=== PATIENT | male | born 1945 | race Caucasian/White ===

== ENCOUNTER 2023-01-30 08:45 | Outpatient (CLI) | payer MEDICARE, OTHER, SELFPAY ==
--- NOTE | 2023-01-30 09:00 | CRLHL7_ITS ---
For Patients: As a result of the Century Cures Act, medical imaging exams and procedure reports are released immediately into your electronic medical record. You may view this report before your referring provider. If you have questions, please contact your health care provider. INDICATION: Prostate cancer staging TECHNIQUE: Intravenous injection of 26.9 mCi Tc MDP followed by delayed anterior and posterior planar images of skeletal system. COMPARISON: CT chest abdomen pelvis 01/30/2023 FINDINGS: Degenerative uptake is present at L2-3. Degenerative uptake also noted at the right L4-5 facet joint. No suspicious rib uptake or pelvic uptake. No abnormal long bone uptake. Skull uptake normal. Degenerative uptake about both shoulders and SC joints. Physiologic uptake in the kidneys. Degenerative uptake noted at the midfoot bilaterally. IMPRESSION: No evidence of metastatic disease. Dictated by Sd Fuentes MD @ 01/30/2023 1:30:33 PM (Electronically Signed)
[2023-01-30 09:26] LABS: Creatinine* 0.9 mg/dL (0.5-1.5); Estimated Glomerular Filt Rate 89 ml/min
--- NOTE | 2023-01-30 10:00 | CRLHL7_ITS ---
For Patients: As a result of the Century Cures Act, medical imaging exams and procedure reports are released immediately into your electronic medical record. You may view this report before your referring provider. If you have questions, please contact your health care provider. Indication: Prostate cancer Technique: Postcontrast CT abdomen and pelvis. 76 cc Isovue 370 intravenous contrast. Please note that all CT scans at this facility use dose modulation, iterative reconstruction, and/or weight-based dosing when appropriate to reduce radiation dose to as low as reasonably achievable. Comparison: CT 10/04/21, MRI 10/06/2022 Findings: Lung bases are clear. No pleural effusion. No basilar infiltrate. The liver is within normal limits. No intrahepatic mass. No stigmata of cirrhosis. Small area of fat deposition is present adjacent to the falciform ligament. Adrenal glands are within normal limits. 2 millimeter nonobstructing stone lower pole right kidney. Subcentimeter cyst upper pole left kidney. The spleen is normal. A small hiatal hernia is present measuring 1.9 cm. Small stones in the gallbladder. No biliary obstruction. Normal pancreas. Atherosclerotic changes. No enlarged retroperitoneal lymph nodes. Stable subcentimeter aortocaval lymph node. No enlarged inguinal lymph nodes. Subcentimeter pelvic sidewall lymph nodes are similar. Prostate calcifications. Increased stool in the colon. Sigmoid diverticulosis. No diverticulitis. Fluid or abscess. Degenerative disc disease L2-3. No vertebral body compression fracture. Degenerative changes also present at L4-5. Impression: Stable subcentimeter retroperitoneal and pelvic sidewall lymph nodes, considered normal. Constipation and sigmoid diverticulosis. Nonobstructing punctate stone lower pole right kidney. No evidence of osseous blastic metastasis. Please note that all CT scans at this facility use dose modulation, iterative reconstruction, and/or weight-based dosing when appropriate to reduce radiation dose to as low as reasonably achievable. Dictated by Sd Fuentes MD @ 01/30/2023 1:17:35 PM (Electronically Signed)
--- NOTE | 2023-02-26 09:21 | PC.NURSE ---
Diagnosis: prostate cancer
== END 2023-01-30 08:46 | disposition home or self-care (01) ==
LOC: NM 08:48
PROVIDERS: PCP Family Medicine; Visit Provider Urology
DX: C61 Malignant neoplasm of prostate (principal); K57.30 Diverticulosis of large intestine without perforation or abscess without bleeding; K59.00 Constipation, unspecified; N20.0 Calculus of kidney
CPT/HCPCS: 36415; 74177; 78306; 82565; A9503; Q9967

== ENCOUNTER 2023-05-24 08:30 | Outpatient (RCR) | payer MEDICARE, BC, SELFPAY ==
--- NOTE | 2023-02-26 10:53 | URNOTE ---
Request received for authorization for [employer] ([employer]) ([id number]). Prior authorization is not required as services are based on medical necessity and follow Medicare guidelines.
[2023-03-01 13:27] VITALS: BP 138/69; PULSE 92; RESP 18; TEMP 36.6; O2SAT 96
[2023-03-29 13:14] VITALS: BP 129/63; PULSE 90; RESP 16; TEMP 36.4; O2SAT 98
[2023-03-29] MEDS: DEGARELIX ACETATE 80 MG INJ SUBCUT (13:43)
[2023-04-26 08:33] VITALS: BP 127/67; PULSE 96; RESP 17; TEMP 36.6; O2SAT 98
[2023-04-26] MEDS: DEGARELIX ACETATE 80 MG INJ SUBCUT (08:59)
--- NOTE | 2023-04-26 09:07 | ONC.NURNOTE ---
states gets dizzy sometimes. offered ER . declined. enc him to call his PMD
[2023-05-24 08:30] VITALS: BP 131/63; PULSE 64; RESP 16; TEMP 36.1; O2SAT 98
[2023-05-24] MEDS: DEGARELIX ACETATE 80 MG INJ SUBCUT (08:51)
== END 2023-08-28 23:59 | disposition home or self-care (01) ==
LOC: CCIC 08:30
PROVIDERS: PCP Family Medicine; Referring Provider Family Medicine; Visit Provider Internal Medicine
DX: C61 Malignant neoplasm of prostate (principal)
CPT/HCPCS: 96401; J9155

== ENCOUNTER 2023-07-13 15:13 | Outpatient (CLI) | payer MEDICARE, BC, SELFPAY ==
--- OUTSIDE RECORDS SUMMARY | 2023-07-13 15:19 | XMS_ITS | Encounter Summary ---
Author Name Unknown Organization [facility] Address [address] [place] [address] Care Team Providers Care Therapeutic Assistant Name Role Phone Unavailable Primary Care Provider Unavailabl e Encounter Details Date Type Department Care Team (Late st Contact Info) Description 06/01/2023 Clinical Communication Department of Radiation Oncology in [place], [place] [address] [place] [phone] Elijah Cedeno M.D. [address] [place] [address] Social History Tobacco Use Types Packs/Day Years Used Date Smoking Tobacco: Former Cigarettes 3 Q uit: 1985 Smokeless Tobacco: Never Alcohol Use Standard Drinks/Week Comments Not Currently 0 (1 standard drink = 0.6 oz pur e alcohol) Overall Financial Resource Strain (CARDIA) Answe r Date Recorded How hard is it for you to pa y for the very basics like food, housing, medical care, and heating? Not hard at all 03/15/2023 Exercise Vital Sign Answer Date Recorde d On average, how many days pe r week do you engage in moderate to strenuous exercise (like a brisk walk)? 7 days 03/15/2023 On average, how many minutes do you engage in exercise at this level? 60 min 03/15/2023 Hunger Vital Sign Answer Date Recorded Within the past 12 months, y ou worried that your food would run out before you got the money to buy more. Never true 03/15/20 23 Within the past 12 months, t he food you bought just didn't last and you didn't have money to get more. Never true 03/15/2023 PRAPARE - Transportation Answer Date Re corded In the past 12 months, has l ack of transportation kept you from medical appointments or from getting medications? No 02/17 In the past 12 months, has l ack of transportation kept you from meetings, work, or from getting things needed for daily living? No 03/15/2023 Nutrition Answer Date Recorded Nutrition: EVOO Fat Source Unknown 03/15 On average, how many serving s of fruits and vegetables do you eat per day (serving size is equal to 1 cup or approximately the size of a tennis ball)? 0-2 03/15/2023 Dental Answer Date Recorded Dental: Regular Dentist Yes 03/15/20 Employment Answer Date Recorded Employment status N/A 03/15/2023 Housing Stability Answer Date Recorded What is your living situation today? I have a [facility] place to live 03/15/2023 Sex and Gender Information Value Date Recorded Sex Assigned at Male 03/15/2023 12:48 PM CDT Gender Identity Male 03/15/2023 12:48 PM CDT Sexual Orientation Straight 03/15/2023 12 :48 PM CDT documented as of this encounter Miscellaneous Notes * Telephone Encounter - Ana Rosa Fernandez APRN, C.N.P., D.N.P. - 06/08/2023 10:58 AM CST I reviewed the patient's EHR related to his recent cardiovascular visits. He has been experiencing more angina recently. His teller supervisor, Dr. Amador, recently performed a Lexiscan stress test whichdemonstrated significant ischemia to the inferior wall of the left ventricle. He recommended obtaining an angiogram. This is scheduled for June 27. The patient reached out to us to see if we could delay his radiation treatment for his prostate cancer. He is currently on hormone therapy for his prostate cancer for an anticipated 6 months. Our plan was to complete radiation treatment towards the end of that 6 months while hormone therapy is active in his body. I reviewed that hormone therapy can sometimes exacerbate cardiac concerns. After discussing with Dr. Cedeno, we have decided to discontinue ADT at this time and let Cardiology complete their workup and any necessary additional procedures. We will postpone radiation treatment at this time. I will plan to touch base with the patient on June 28, after his angiogram is completed. I will touch base and see how he is feeling and discuss next steps of possibly restarting hormone therapy or discontinuing entirely and when to initiate radiation treatment. We will plan to obtain an updated PSA and testosterone at [facility], along with a follow up visit, no later than 1 month post angiogram. The patient verbalized understanding and agreement to the plan. He was appreciative of the phone call. ENGINE EVALUATOR * Telephone Encounter - Shruti Walters - 06/06/2023 3:01 PM CST Other Reason for Call Caller: Kishore Corbin Relationships to patient: N/a Reason for call: Kishore called stating when he went to [facility] today they found something wrong withhis heart and he is looking to push is treatment back. Can someone give him a call to talk about this and let us know what you would like to do. Thanks ENGINE EVALUATOR * Telephone Encounter - Lena Caldwell RAbel - 06/01/2023 11:06 AM TEST ENGINE EVALUATOR ASSESSMENT Patient reports mood swings, fatigue and at times weakness while on ADT. Patient is often on his feet during work that can affect his fatigue and weakness. He has noticed some weight loss as well andhe notes he does have a history of diabetes. Patient reports mood swings are anxiety and some depression that can last from 1 hour to half a day and then improve. Patient notes that he meets with a therapist routinely. Patient denies feeling suicidal or wanting to harm himself or others. Patient isunsure if he wants to proceed with July ADT injection. PLAN I encouraged patient to connect in with his therapist as often as he feels he needs too. I encouraged patient to contact 911 if he has thoughts of suicide or wanting to harm himself or others. He is seeing a Players Assistant at [facility] and feels he is well connected with weight management at [facility]. We discussed muscle strength program and balancing levels of rest and activity to help with fatigue and feelings of weakness. We discussed that these symptoms are indeed side effects of ADT. Patient states that he feels better knowing that these are indeed side effects of ADT and that he now does not feelas worried. I offered our support to patient today and that he can contact us at anytime for any que stions or concerns. We discussed that he does have an appointment with Dr. Cedeno on July 04, 2022 and ADT management will also be further discussed at this appointment. Patient appreciated callback and comfortable with established plan of care discussed today. Disposition/Recommendation: self-care - appropriate at this time, patient encouraged to call back with questions. Information/Education: patient/caller able to teach back. Caller agreeable to plan of care: yes. The following references were used: nursing clinical judgement. ENGINE EVALUATOR * Telephone Encounter - Jaqueline Irizarry - 06/01/2023 10:52 AM CST Other Reason for Call Caller: Kishore Relationships to patient: Self Reason for call: Kishore called wanting to report that its been a challenge to manage the side effects from the Firmagon injections. He's had mood swings, fatigue and weakness. He is wondering how long these will continue? He's scheduled for his next injection on June 21, 2023, but is really unsure about doing another injection in July. In his words he's not sure he can make it that long. He would appreciate a call back. [phone] ENGINE EVALUATOR documented in this encounter Plan of Treatment Upcoming Encounters Date Type Department Care Team (Late st Contact Info) Description 07/23/2023 7:00 AM TEST ENGINE EVALUATOR Appointment Department of Radiation Oncology in [place], [place] [address] [place] [address] Elijah Cedeno M.D. [address] [place] [address] documented as of this encounter Visit Diagnoses Not on filedocumented in this encounter
--- OUTSIDE RECORDS SUMMARY | 2023-07-13 15:19 | XMS_ITS | Encounter Summary ---
Author Name Unknown Organization [facility] Address [address] [place] [address] Care Team Providers Care It Security Manager Name Role Phone Unavailable Primary Care Provider Unavailabl e Reason for Referral * Radiation Therapy (Routine) - Closed Specialty Diagnoses / Procedures Referred By Contac t Referred To Contact Diagnoses Primary Malignant Neoplasm Of Prostate (HCC) Procedures Initial Rad Onc Treatment Planning CT Simulation Elijah Cedeno M.D. [address] [place] [address] [facility] Region Referral ID Status Reason Start Date Expiration Date Visits Re quested Visits Authorized [id number] Closed 03/22/2023 03/21/2024 1 1 ICH FARMER Reason for Visit * Radiation Therapy (Routine) - Closed Specialty Diagnoses / Procedures Referred By Contac elaine Referred To Contact Diagnoses Primary Malignant Neoplasm Of Prostate (HCC) Procedures Initial Rad Onc Treatment Planning CT Simulation Elijah Cedeno M.D. [address] [place] [address] [facility] Region Referral ID Status Reason Start Date Expiration Date Visits Re quested Visits Authorized [id number] Closed 03/22/2023 03/21/2024 1 1 Encounter Details Date Type Department Care Team (Latest Contact Info) Description 07/13/2023 2:00 PM OSTRICH FARMER Hospital Encounter Department of Radiation Oncology in [place], [place] [address] [place] [address] Elijah Cedeno M.D. [address] [place] [address] Primary Malignant Neoplasm Of Prostate (HCC) Social History Tobacco Use Types Packs/Day Years [...] money to buy more. Never true 03/15/20 Within the past 12 months, t he [...] your living situation today? I have a [facility] place to live 03/15/2023 Sex and Gender Information Value Date Recorded Sex Assigned at Male 03/15/2023 12:48 PM CDT Gender Identity Male 03/15/2023 12:48 PM CDT Sexual Orientation Straight 03/15/2023 12 :48 PM CDT documented as of this encounter Plan of Treatment Upcoming Encounters Date Type Department Care Team (Late st Contact Info) Description 07/23/2023 7:00 AM OSTRICH FARMER Appointment Department of Radiation Oncology in [place], [place] [address] [place] [phone] Elijah Cedeno M.D. [address] [place] [address] Pending Results Name Type Priority Associated Diagnoses Date/Time Initial Rad Onc Treatment Planning CT Simulation Procedural Imaging Routine Primary Malignant Neoplasm Of Prostate (HCC) 07/13/2023 2:00 PM OSTRICH FARMER documented as of this encounter Procedures Procedure Name Priority Date/Time Associated Diagnosis Comments INITIAL RAD ONC TREATMENT PLANNING CT SIMULATION Routine 07/13/2023 2:00 PM OSTRICH FARMER Primary Malignant Neoplasm Of Prostate (HCC) documented in this encounter Visit Diagnoses Diagnosis Primary Malignant Neoplasm Of Prostate (HCC) documented in this encounter
--- OUTSIDE RECORDS SUMMARY | 2023-07-13 15:19 | XMS_ITS | Referral Summary ---
Author Name Unknown Organization [facility] Address [address] [place] [address] Care Team Providers Care Net Making Supervisor Name Role Phone Unavailable Primary Care Provider Unavailabl e Source Comments Patient records contain information from all sites at [facility]. For routine questions regarding patient records, call [phone] during business hours, M-F 8:00 AM - 5:00 PM Central Time. Record requests for emergency care only can be directed to [phone] at any time.[facility] Encounters Date Type Department Care Team Description 07/13/2023 2:00 PM HOT PACKER Hospital Encounter Department of Radiation Oncology in [address] [address] Elijah Cedeno M.D. Primary Malignant Neoplasm Of Prostate (HCC) 07/13/2023 1:12 PM HOT PACKER Hospital Encounter Department of Radiation Oncology in [address] [address] Elijah Cedeno M.D. Primary Malignant Neoplasm Of Prostate (HCC) (Primary Dx) 07/13/2023 10:30 AM HOT PACKER Hospital Encounter Department of Radiation Oncology in [address] [address] Elijah Cedeno M.D. Canceled (Clinic: Scheduling Error) 07/13/2023 10:00 AM HOT PACKER Hospital Encounter Department of Radiation Oncology in [address] [address] Elijah Cedeno M.D. Primary Malignant Neoplasm Of Prostate (HCC) (Primary Dx) 07/13/2023 1:30 PM HOT PACKER Hospital Encounter Department of Radiation Oncology in [address] [address] Elijah Cedeno M.D. Primary Malignant Neoplasm Of Prostate (HCC) (Primary Dx) 06/01/2023 Clinical Communication Department of Radiation Oncology in [address] [address] Elijah Cedeno M.D. 05/09/2023 Clinical Communication Department of Radiation Oncology in [address] [address] Elijah Cedeno M.D. 05/03/2023 1:00 PM HOT PACKER - 05/03/2023 11:59 PM HOT PACKER Hospital Encounter Department of Radiation Oncology in [address] [address] Susannah Palafox P.A.-C., M.S. Maddison Galvan, RDN Primary Malignant Neoplasm Of Prostate (HCC) Discharge Disposition: Home or Self Care 04/30/2023 Clinical Communication Department of Radiation Oncology in [address] [address] Elijah Cedeno M.D. 04/24/2023 Clinical Communication Department of Radiation Oncology in [address] [address] Elijah Cedeno M.D. 04/23/2023 Orders Only Department of Radiation Oncology in [address] [address] Elijah Cedeno M.D. Primary Malignant Neoplasm Of Prostate (HCC) (Primary Dx) from Last 3 Months Allergies Active Allergy Reactions Criticality Noted Date Comments Allopurinol Other (see comments) 12/25/2012 drowsy Carvedilol Other (see comments) 03/22/2022 spacey Chlorthalidone Other (see comments) Low 09/29/2008 Ciprofloxacin Hcl Other (see comments) High 01/04/2023 Clindamycin Other (see comments) 12/13/2010 Escitalopram Other (see comments) 12/08/2022 Multiple symptoms. Ezetimibe Headache 07/01/2018 Headaches stiffness, fatigue, muscle and joint pain and intestinal discomfort. 07/01/2018 Hydrochlorothiazide Other (see comments) 09/13/2011 Stopped to help urinary frequency Omeprazole Other (see comments) 12/25/2012 Abdominal cramps Dzpncpc-Myj-Wqf Reductase Inhibitors Myalgia,Other (see comments) Low 10/02/2007 Tried Zocor and Lipitor caused muscle aches/weakness. Medications Medication Sig Dispensed Refills Start Date End Date Status amLODIPine (NORVASC) 2.5 mg tablet 0 02/12/2023 Active aspirin 81 mg chewable tablet 81 mg by Nasogastric route. 0 11/22/2015 Active cholecalciferol (VITAMIN D3) 25 mcg (1,000 Unit) capsule Take 1 capsule by mouth 2 (two) times a day. 0 08/10/2011 Active famotidine (PEPCID) 20 mg tablet 0 03/22/2022 Active lisinopriL (PRINIVIL,ZESTRIL ) 40 mg tablet Take 1 tablet by mouth daily. 0 03/09/2022 Active rosuvastatin (CRESTOR) 5 mg tablet Take 1 tablet by mouth at bedtime. 0 06/13/2022 Active nitroglycerin (NITROSTAT) 0.4 mg SL tablet 0 03/22/2022 Active hydrOXYzine (ATARAX) 25 mg tablet One oral every 6 hours as needed. 0 09/01/2021 Active ammonium lactate (AMLACTIN) 12 % cream APPLY ONCE DAILY NEEDED FOR DRY SKIN 0 Active acyclovir (ZOVIRAX) 200 mg capsule TAKE 1 CAPSULE BY MOUTH 5 TIMES DAILY NEEDED 0 12/13/2022 Active Accu-Chek Guide test strips TEST 1 TIME DAILY 0 07/18/2022 Active clobetasoL (TEMOVATE) 0.05 % cream APPLY TO AFFECTED AREA ON HANDS TWICE A DAY FOR 2 WEEKS , TAKE 2 WEEK BREAK THEN REPEAT NEEDED FOR FLARES 0 01/24/2022 Active ketoconazole (NIZORAL) 2 % cream APPLY TO AFFECTED AREA ON BACK AND NECK 2-3 TIMES WEEKLY ONGOING 0 Active coenzyme Q10 (CO Q-10) 200 mg capsule Take by mouth. 0 12/30/2008 Active tamsulosin (FLOMAX) 0.4 mg 24 hr capsule Take 1 capsule (0.4 mg total) by mouth daily. 30 capsule 3 02/22/2023 Active Additional Information Patient not taking.Reported on 07/13/2023 omega 9-kgu-cpw-fish oil (fish oil) 1,000 mg (120 mg-180 mg) capsule Take 4 capsules by mouth daily. 0 08/10/2011 Active cephalexin (KEFLEX) 500 mg capsule Take 1 capsule (500 mg total) by mouth as directed for 2 days. Take 1 the evening prior to the procedure and 1 the morning of the procedure. 2 capsule 0 06/20/2023 06/22/2023 Active Problems Problem Noted Date Diagnosed Date Primary Malignant Neoplasm Of Prostate 3 Cancer Staging:Clinical stage from 12/22/2022:Stage IIB(cT2c, cN0, cM0, PSA: 16.8, Grade Group: 2) - Unsigned Immunizations Name Administration Dates Next Due DTaP (Infanrix, Tripedia) 12/30/2008 Social History Tobacco Use Types Packs/Day Years Used Date Smoking Tobacco: Former Cigarettes 3 Q uit: 1985 Smokeless Tobacco: Never Tobacco Cessation:Counseling Given: Not Answered Alcohol Use Standard Drinks/Week Comments Not Currently 0 (1 standard drink = 0.6 oz pur e alcohol) Overall Financial Resource Strain (CARDI) Answe r Date Recorded How hard is [...] your living situation today? I have a [facility] place to live 03/15/2023 Sex and Gender Information Value Date Recorded Sex Assigned at Male 03/15/2023 12:48 PM CDT Gender Identity Male 03/15/2023 12:48 PM CDT Sexual Orientation Straight 03/15/2023 12 :48 PM CDT Last Filed Vital Signs Vital Sign Reading Time Taken Comments Blood Pressure 131/52 07/13/2023 1:28 PM HOT PACKER Pulse 89 07/13/2023 1:28 PM HOT PACKER Temperature 35.8 ??C (96.5 ??F) 07/13/2023 1:28 PM CS T Respiratory Rate - - Oxygen Saturation - - Inhaled Oxygen Concentration - - Weight 72.4 kg (159 lb 11.2 oz) 07/13/2023 1:28 PM HOT PACKER Height - - Body Mass Index - - Plan of Treatment Upcoming Encounters Date Type Department Care Team (Late st Contact Info) Description 07/23/2023 7:00 AM HOT PACKER Appointment Department of Radiation Oncology in [place], [place] [address] [place] [address] Elijah Cedeno M.D. [address] [place] [address] Procedures Procedure Name Priority Date/Time Associated Diagnosis Comments INITIAL RAD ONC TREATMENT PLANNING CT SIMULATION Routine 07/13/2023 2:00 PM HOT PACKER Primary Malignant Neoplasm Of Prostate (HCC) from Last 3 Months Advance Directives For more information, please contact: [phone] Documents on File Type Date Recorded Patient Cook Sauce Expl anation Advance Directives 03/22/2023 12:03 PM Patric Valdovinos HCPOA/ADVOCATE/AGENT/R EPRESENTATIVE/SURROGAT E Healthcare Agents on File Name Relationship Healthcare Agent Relationshi p Communication Patric Hancock Friend Health Care Agent [email or web address] [place] Valdovinos Relative First Alternate Health Care Agent [email or web address]
--- OUTSIDE RECORDS SUMMARY | 2023-07-13 15:19 | XMS_ITS ---
Author Name Unknown Organization [facility] Address [address] [place] [address] Care Team Providers Care Studio Designer Name Role Phone Unavailable Unavailable Unavailable Surgery Details Not on file Complications Check Surgery Details section. Procedure Estimated Blood Loss Check Surgery Details section. Procedure Findings Check Surgery Details section. Procedure Specimens Taken Check Surgery Details section.
--- OUTSIDE RECORDS SUMMARY | 2023-07-13 15:19 | XMS_ITS | Encounter Summary ---
Author Name Unknown Organization [facility] Address [address] [place] [address] Care Team Providers Care Autocad Electrical Designer Name Role Phone Unavailable Primary Care Provider Unavailabl e Reason for Visit * Outpatient (Routine) - Closed Specialty Diagnoses / Procedures Referred By Jake t Referred To Contact Radiation Oncology Elijah Cedeno M.D. [address] [place] [address] Elijah Cedeno M.D. [address] [place] [address] Referral ID Status Reason Start Date Expiration Date Visits Re quested Visits Authorized [id number] Closed 03/22/2023 03/21/2026 1 1 Encounter Details Date Type Department Care Team (Latest Contact Info) Description 07/13/2023 1:30 PM [facility] Hospital Encounter Department of Radiation Oncology in [place], [place] [address] [place] [address] Elijah Cedeno M.D. [address] [place] [address] Primary Malignant Neoplasm Of Prostate (HCC) (Primary Dx) Social History Tobacco Use Types Packs/Day Years [...] your living situation today? I have a [facility] place to live 03/15/2023 Sex and Gender Information Value Date Recorded Sex Assigned at Male 03/15/2023 12:48 PM CDT Gender Identity Male 03/15/2023 12:48 PM CDT Sexual Orientation Straight 03/15/2023 12 :48 PM CDT documented as of this encounter Plan of Treatment Upcoming Encounters Date Type Department Care Team (Late st Contact Info) Description 07/23/2023 7:00 AM CALCULATION CLERK Appointment Department of Radiation Oncology in [place], [place] [address] [place] [address] Elijah [place] [address] documented as of this encounter Visit Diagnoses Diagnosis Primary Malignant Neoplasm Of Prostate (HCC)- Primary documented in this encounter
--- OUTSIDE RECORDS SUMMARY | 2023-07-13 15:19 | XMS_ITS ---
Author Name Unknown Organization [facility] Address [address] [place] [address] Care Team Providers Care Glueline Worker Name Role Phone Unavailable Primary Care Provider Unavailabl e Active Problems Problem Noted Date Diagnosed Date Primary Malignant Neoplasm Of Prostate 3 Cancer Staging:Clinical stage from 12/22/2022:Stage IIB(cT2c, cN0, cM0, PSA: 16.8, Grade Group: 2) - Unsigned Current Oncology Plans Degarelix* Plan Start Date:02/26/2023 Plan Provider:Elijah Cedeno M.D. Linked Problems Primary Malignant Neoplasm O f Prostate (HCC) Treatment Medications No medications scheduled. Past Plans No past plan information found. Radiation Treatments * No radiation treatments are documented for this patient in [facility]. Treatments may have been administered in another system.
--- OUTSIDE RECORDS SUMMARY | 2023-07-13 15:19 | XMS_ITS | Encounter Summary ---
Author Name Unknown Organization [facility] Address [address] [place] [address] Care Team Providers Care Legal Administrative Assistant Name Role Phone Unavailable Primary Care Provider Unavailabl e Reason for Referral * Outpatient (Routine) - Canceled Specialty Diagnoses / Procedures Referred By Jake henry Referred To Contact Nutrition Diagnoses Primary Malignant Neoplasm Of Prostate (HCC) Susannah Palafox P.A.-C., M.S. [address] [place] [address] [facility] Region Referral ID Status Reason Start Date Expiration Date V isits Requested Visits Authorized [id number] Canceled 04/30/2023 04/29/2024 1 1 Scheduling Instructions Next available ING ASSISTANT Reason for Visit * Outpatient (Routine) - Canceled Specialty Diagnoses / Procedures Referred By Jake henry Referred To Contact Nutrition Diagnoses Primary Malignant Neoplasm Of Prostate (HCC) Susannah Palafox P.A.-C., M.S. [address] [place] [address] [facility] Region Referral ID Status Reason Start Date Expiration Date V isits Requested Visits Authorized [id number] Canceled 04/30/2023 04/29/2024 1 1 Encounter Details Date Type Department Care Team (Latest Contact Info) Description 05/03/2023 1:00 PM CASTING ASSISTANT - 05/03/2023 11:59 PM CASTING ASSISTANT Hospital Encounter Department of Radiation Oncology in [place], [place] [address] [place] [phone] Susannah Palafox P.A.-C., M.S. [address] [place] [address] Maddison Galvan, RDN [address] [place] [phone] Primary Malignant Neoplasm Of Prostate (HCC) Discharge Disposition: Home or Self Care Social History Tobacco Use Types Packs/Day Years [...] your living situation today? I have a [facility] place to live 03/15/2023 Sex and Gender Information Value Date Recorded Sex Assigned at Male 03/15/2023 12:48 PM CDT Gender Identity Male 03/15/2023 12:48 PM CDT Sexual Orientation Straight 03/15/2023 12 :48 PM CDT documented as of this encounter Medications at Time of Discharge Medication Sig Dispensed Refills Start Date End Date Accu-Chek Guide test strips TEST 1 TIME DAILY 0 07/18/2022 acyclovir (ZOVIRAX) 200 mg capsule TAKE 1 CAPSULE BY MOUTH 5 TIMES DAILY NEEDED 0 12/13/2022 amLODIPine (NORVASC) 2.5 mg tablet 0 02/12/2023 ammonium lactate (AMLACTIN) 12 % cream APPLY ONCE DAILY NEEDED FOR DRY SKIN 0 aspirin 81 mg chewable tablet 81 mg by Nasogastric route. 0 11/22/2015 cholecalciferol (VITAMIN D3) 25 mcg (1,000 Unit) capsule Take 1 capsule by mouth 2 (two) times a day. 0 08/10/2011 clobetasoL (TEMOVATE) 0.05 % cream APPLY TO AFFECTED AREA ON HANDS TWICE A DAY FOR 2 WEEKS , TAKE 2 WEEK BREAK THEN REPEAT NEEDED FOR FLARES 0 01/24/2022 coenzyme Q10 (CO Q-10) 200 mg capsule Take by mouth. 0 12/30/2008 famotidine (PEPCID) 20 mg tablet 0 03/22/2022 hydrOXYzine (ATARAX) 25 mg tablet One oral every 6 hours as needed. 0 09/01/2021 ketoconazole (NIZORAL) 2 % cream APPLY TO AFFECTED AREA ON BACK AND NECK 2-3 TIMES WEEKLY ONGOING 0 lisinopriL (PRINIVIL,ZESTRIL) 40 mg tablet Take 1 tablet by mouth daily. 0 03/09/2022 nitroglycerin (NITROSTAT) 0.4 mg SL tablet 0 03/22/2022 omega 0-acw-sqs-fish oil (fish oil) 1,000 mg (120 mg-180 mg) capsule Take 4 capsules by mouth daily. 0 08/10/2011 rosuvastatin (CRESTOR) 5 mg tablet Take 1 tablet by mouth at bedtime. 0 06/13/2022 tamsulosin (FLOMAX) 0.4 mg 24 hr capsule Take 1 capsule (0.4 mg total) by mouth daily. 30 capsule 3 02/22/2023 cephalexin (KEFLEX) 500 mg capsule Take 1 capsule (500 mg total) by mouth as directed for 2 days. Take 1 the evening prior to the procedure and 1 the morning of the procedure. 2 capsule 0 06/20/2023 06/22/2023 documented as of this encounter Progress Notes * Maddison Galvan RDN - 05/03/2023 1:00 PM CST Attempted to contact patient via phone 3 times throughout the afternoon for a nutrition phone visitat 1:00 p.m. Patient did not answer. Voice message was also left for patient to return call. ING ASSISTANT documented in this encounter Plan of Treatment Upcoming Encounters Date Type Department Care Team (Late st Contact Info) Description 07/23/2023 7:00 AM CASTING ASSISTANT Appointment Department of Radiation Oncology in [place], [place] [address] [place] [address] Elijah Cedeno M.D. [address] [place] [address] Scheduled Referrals Name Type Priority Associated Diagnoses Order Schedule Nutrition - Medical nutrition therapy consult (clinic) Outpatient Referral Routine Primary Malignant Neoplasm Of Prostate (HCC) Once for 1 Occurrences starting 05/03/2023 until 05/03/2023 documented as of this encounter Visit Diagnoses Diagnosis Primary Malignant Neoplasm Of Prostate (HCC) documented in this encounter
--- OUTSIDE RECORDS SUMMARY | 2023-07-13 15:19 | XMS_ITS | Encounter Summary ---
Author Name Unknown Organization [facility] Address [address] [place] [address] Care Team Providers Care Orchardist Name Role Phone Unavailable Primary Care Provider Unavailabl e Reason for Referral * Outpatient (Routine) - Closed Specialty Diagnoses / Procedures Referred By Contac t Referred To Contact Radiation Oncology Elijah Cedeno M.D. [address] [place] [address] Elijah Cedeno M.D. [address] [place] [address] Referral ID Status Reason Start Date Expiration Date Visits Re quested Visits Authorized [id number] Closed 03/22/2023 03/21/2026 1 1 Scheduling Instructions At least 48 hours after rectal spacer placement, coordinate with Sim and MRI MACHINE TENDER Reason for Visit * Outpatient (Routine) - Closed Specialty Diagnoses / Procedures Referred By Contac t Referred To Contact Radiation Oncology Elijah Cedeno M.D. [address] [place] [address] Elijah Cedeno M.D. [address] [place] [address] Referral ID Status Reason Start Date Expiration Date Visits Re quested Visits Authorized [id number] Closed 03/22/2023 03/21/2026 1 1 Encounter Details Date Type Department Care Team (Latest Contact Info) Description 07/13/2023 1:12 PM WET MACHINE TENDER Hospital Encounter Department of Radiation Oncology in [place], [place] [address] [place] [address] Elijah Cedeno M.D. [address] [place] [address] Primary Malignant Neoplasm Of Prostate (HCC) (Primary [...] your living situation today? I have a [facility] place [facility] 03/15/2023 Sex and Gender Information Value Date Recorded Sex Assigned at Male 03/15/2023 12:48 PM CDT Gender Identity Male 03/15/2023 12:48 PM CDT Sexual Orientation Straight 03/15/2023 12 :48 PM CDT documented as of this encounter Last Filed Vital Signs Vital Sign Reading Time Taken Comments Blood Pressure 131/52 07/13/2023 1:28 PM WET MACHINE TENDER Pulse 89 07/13/2023 1:28 PM WET MACHINE TENDER Temperature 35.8 ??C (96.5 ??F) 07/13/2023 1:28 PM CS T Respiratory Rate - - Oxygen Saturation - - Inhaled Oxygen Concentration - - Weight 72.4 kg (159 lb 11.2 oz) 07/13/2023 1:28 PM WET MACHINE TENDER Height - - Body Mass Index - - documented in this encounter Plan of Treatment Upcoming Encounters Date Type Department Care Team (Late st Contact Info) Description 07/23/2023 7:00 AM WET MACHINE TENDER Appointment Department of Radiation Oncology in [place], [place] [address] [place] [address] Elijah Cedeno M.D. [address] [place] [address] Scheduled Referrals Name Type Priority Associated Diagnoses Order Schedule Radiation Oncology office visit (clinic) Outpatient Referral Routine Once for 1 Occurrences starting 07/13/2023 until 07/13/2023 documented as of this encounter Visit Diagnoses Diagnosis Primary Malignant Neoplasm Of Prostate (HCC)- Primary documented in this encounter
--- OUTSIDE RECORDS SUMMARY | 2023-07-13 15:19 | XMS_ITS | Clinical Summary ---
Author Name Unknown Organization [facility] Address [address] [place] [address] Care Team Providers Care Acid Wash Operator Name Role Phone Unavailable Primary Care Provider Unavailabl e Source Comments Patient records contain information from all sites at [facility]. For routine questions regarding patient records, call [phone] during business hours, M-F 8:00 AM - 5:00 PM Central Time. Record requests for emergency care only can be directed to [phone] at any time.[facility] Allergies Active Allergy Reactions Criticality Noted Date [...] Omeprazole Other (see comments) 12/25/2012 Abdominal cramps Vucqzyl-Pja-Wno Reductase Inhibitors Myalgia,Other (see comments) Low 10/02/2007 [...] Information Patient not taking.Reported on 07/13/2023 omega 9-gup-xaf-fish oil (fish oil) 1,000 mg (120 mg-180 [...] PSA: 16.8, Grade Group: 2) - Unsigned Encounters Date Type Department Care Team Description 07/13/2023 2:00 PM [facility] Hospital Encounter Department of Radiation Oncology in [address] [address] Elijah Ceedno M.D. Primary Malignant Neoplasm Of Prostate (HCC) 07/13/2023 1:30 PM [facility] Hospital Encounter Department of Radiation Oncology in [address] [address] Elijah Cedeno M.D. Primary Malignant Neoplasm Of Prostate (HCC) (Primary Dx) 07/13/2023 1:12 PM [facility] Hospital Encounter Department of Radiation Oncology in [address] [address] Elijah Cedeno M.D. Primary Malignant Neoplasm Of Prostate (HCC) (Primary Dx) 07/13/2023 10:30 AM [facility] Hospital Encounter Department of Radiation Oncology in [address] [address] Elijah Cedeno M.D. Canceled (Clinic: Scheduling Error) 07/13/2023 10:00 AM [facility] Hospital Encounter Department of Radiation Oncology in [address] [address] Elijah Cedeno M.D. Primary Malignant Neoplasm Of Prostate (HCC) (Primary Dx) 06/01/2023 Clinical Communication Department of Radiation Oncology in [address] [address] Elijah Cedeno M.D. 05/09/2023 Clinical Communication Department of Radiation Oncology in [address] [address] Elijah Cedeno M.D. 05/03/2023 1:00 PM [facility] - 05/03/2023 11:59 PM [facility] Hospital Encounter Department of Radiation Oncology in [address] [address] Susannah Palafox P.A.-C., M.S. Maddison Galvan, RDN Primary Malignant Neoplasm Of Prostate (HCC) Discharge Disposition: Home or Self Care 04/30/2023 Clinical Communication Department of Radiation Oncology in [address] [address] Elijah Cedeno M.D. 04/24/2023 Clinical Communication Department of Radiation Oncology in [address] [address] Elijah Cedeno M.D. 04/23/2023 Orders Only Department of Radiation Oncology in [address] [address] Elijah Cedeno M.D. Primary Malignant Neoplasm Of Prostate (HCC) (Primary Dx) from Last 3 Months Immunizations Name Administration Dates Next Due DTaP [...] your living situation today? I have a [facility] place to live 03/15/2023 Sex and Gender Information Value Date Recorded Sex Assigned at Male 03/15/2023 12:48 PM CDT Gender Identity Male 03/15/2023 12:48 PM CDT Sexual Orientation Straight 03/15/2023 12 :48 PM CDT Last Filed Vital Signs Vital Sign Reading Time Taken Comments Blood Pressure 131/52 07/13/2023 1:28 PM [facility] Pulse 89 07/13/2023 1:28 PM [facility] Temperature 35.8 ??C (96.5 ??F) 07/13/2023 1:28 PM CS T Respiratory Rate - - Oxygen Saturation - - Inhaled Oxygen Concentration - - Weight 72.4 kg (159 lb 11.2 oz) 07/13/2023 1:28 PM [facility] Height - - Body Mass Index - - Plan of Treatment Upcoming Encounters Date Type Department Care Team (Late st Contact Info) Description 07/23/2023 7:00 AM [facility] Appointment Department of Radiation Oncology in [place], [place] [address] [place] [phone] Elijah Cedeno M.D. [address] [place] [address] Health Maintenance Due Date Last Done Comments Abdominal Aortic Aneurysm (AAA) Screen 1947 CT Colonography 1947 Cologuard 1945 Colonoscopy 1945 Colorectal Cancer Screening 1947 FIT 1945 Hepatitis C Screening 1945 Depression Screening (Annual PHQ-2) 06/18/2023 Fall Risk Screen (Annual) 06/18/2023 Creatinine Level (Kidney Function Test) 06/28/2024 06/28/2023, 06/27/2023, 05/04/2023, Additional history exists Potassium Level 06/28/2024 06/28/2023, 06/18, 05/04/2023, Additional history exists Sodium Level 06/28/2024 06/28/2023, 06/18, 05/04/2023, Additional history exists Fasting Glucose for Diabetes Screening 06/28/2026 06/28/2023, 06/27/2023, 05/04/2023, Additional history exists DTaP,Tdap,and Td Vaccines (3 - Td or Tdap) 03/26/2029 03/26/2019, 12/30/2008, 12/30/2008 Pneumococcal vaccine (65+ years) Completed 02/02/2015, 09/05/2013 Zoster Vaccines Completed 02/12/2019, 11/17, 11/30/2009 COVID-19 Vaccine Completed 03/28/2023, 02/2023, 03/22/2022, Additional history exists Influenza Vaccine Completed 03/30/2023, , 03/10/2021, Additional history exists HPV Vaccines Aged Out No longer eligi ble based on patient's age to complete this topic Procedures Procedure Name Priority Date/Time Associated Diagnosis Comments INITIAL RAD ONC TREATMENT PLANNING CT SIMULATION Routine 07/13/2023 2:00 PM [facility] Primary Malignant Neoplasm Of Prostate (HCC) from Last 3 Months Advance Directives For more information, please contact: [phone] Documents on File Type Date Recorded Patient Customer Acquisition Manager Expl anation Advance Directives 03/22/2023 12:03 PM Patric Valdovinos HCPOA/ADVOCATE/AGENT/R EPRESENTATIVE/SURROGAT E Healthcare Agents on File Name Relationship Healthcare Agent Relationshi p Communication Patric Hancock Friend Health Care Agent [email or web address] Valdovinos Relative First Alternate Health Care Agent [email or web address]
--- OUTSIDE RECORDS SUMMARY | 2023-07-13 15:19 | XMS_ITS | Encounter Summary ---
Author Name Unknown Organization [facility] Address [address] [place] [address] Care Team Providers Care Assistant Press Operator Name Role Phone Unavailable Primary Care Provider Unavailabl e Reason for Visit * Radiation Therapy (Routine) - Closed Specialty Diagnoses / Procedures Referred By Contac t Referred To Contact Diagnoses Primary Malignant Neoplasm Of Prostate (HCC) Procedures Initial Rad Onc Treatment Planning CT Simulation Elijah Cedeno M.D. [address] [place] [address] [facility] Region Referral ID Status Reason Start Date Expiration Date Visits Re quested Visits Authorized [id number] Closed 03/22/2023 03/21/2024 1 1 Encounter Details Date Type Department Care Team (Latest Contact Info) Description 07/13/2023 10:30 AM [facility] Hospital Encounter Department of Radiation Oncology in [place], [place] [address] [place] [phone] Elijah Cedeno M.D. [address] [place] [phone] Canceled (Clinic: Scheduling Error) Social History Tobacco Use Types Packs/Day Years [...] your living situation today? I have a [facility] place to live 03/15/2023 Sex and Gender Information Value Date Recorded Sex Assigned at Male 03/15/2023 12:48 PM CDT Gender Identity Male 03/15/2023 12:48 PM CDT Sexual Orientation Straight 03/15/2023 12 :48 PM CDT documented as of this encounter Plan of Treatment Upcoming Encounters Date Type Department Care Team (Late st Contact Info) Description 07/23/2023 7:00 AM MILL AND COAL TRANSPORT OPERATOR Appointment Department of Radiation Oncology in [place], [place] [address] [place] [address] Elijah Cedeno M.D. [address] [place] [address] Pending Results Name Type Priority Associated Diagnoses Date/Time Initial Rad Onc Treatment Planning CT Simulation Procedural Imaging Routine Primary Malignant Neoplasm Of Prostate (HCC) 07/13/2023 2:00 PM MILL AND COAL TRANSPORT OPERATOR documented as of this encounter Procedures Procedure Name Priority Date/Time Associated Diagnosis Comments INITIAL RAD ONC TREATMENT PLANNING CT SIMULATION Routine 07/13/2023 2:00 PM MILL AND COAL TRANSPORT OPERATOR Primary Malignant Neoplasm Of Prostate (HCC) documented in this encounter Visit Diagnoses Not on filedocumented in this encounter
--- OUTSIDE RECORDS SUMMARY | 2023-07-13 15:19 | XMS_ITS | Encounter Summary ---
Author Name Unknown Organization [facility] Address [address] [place] [address] Care Team Providers Care Boiler Assistant Operator Name Role Phone Unavailable Primary Care Provider Unavailabl e Encounter Details Date Type Department Care Team (Late st Contact Info) Description 05/09/2023 Clinical Communication Department of Radiation Oncology in [place], [place] [address] [place] [phone] Elijah Cedeno M.D. [address] [place] [address] Social History Tobacco Use Types Packs/Day Years [...] your living situation today? I have a [facility] place to live 03/15/2023 Sex and Gender Information Value Date Recorded Sex Assigned at Male 03/15/2023 12:48 PM CDT Gender Identity Male 03/15/2023 12:48 PM CDT Sexual Orientation Straight 03/15/2023 12 :48 PM CDT documented as of this encounter Miscellaneous Notes * Telephone Encounter - Jaqueline Irizarry - 05/09/2023 10:31 AM CST Other Reason for Call Caller: Kishore Relationships to patient: Self Reason for call: Patient called stating he thought that Dr. Cedeno wanted him to have more Firmagon injections? He's currently scheduled for his next injection on 05/24 at [facility], there is one more order for June that is not scheduled yet. Do you want him to get more after June? If so more orders will need to be put through and we can let the patient know. Thank you. BIT BUILDER documented in this encounter Plan of Treatment Upcoming Encounters Date Type Department Care Team (Late st Contact Info) Description 07/23/2023 7:00 AM EXHIBIT BUILDER Appointment Department of Radiation Oncology in [address] [address] Elijah Cedeno M.D. [address] [place] [address] documented as of this encounter Visit Diagnoses Not on filedocumented in this encounter
--- OUTSIDE RECORDS SUMMARY | 2023-07-13 15:19 | XMS_ITS | Encounter Summary ---
Author Name Unknown Organization [facility] Address [address] [place] [address] Care Team Providers Care Director Global Name Role Phone Unavailable Primary Care Provider Unavailabl e Reason for Visit * Outpatient (Routine) - Closed Specialty Diagnoses / Procedures Referred By Jake t Referred To Contact Radiation Oncology Elijah Cedeno M.D. [address] [place] [address] Elijah Cedeno M.D. [address] [place] [address] Referral ID Status Reason Start Date Expiration Date Visits Re quested Visits Authorized [id number] Closed 03/22/2023 03/21/2026 1 1 Encounter Details Date Type Department Care Team (Latest Contact Info) Description 07/13/2023 10:00 AM [facility] Hospital Encounter Department of Radiation Oncology in [place], [place] [address] [place] [phone] Elijah Cedeno M.D. [address] [place] [address] Primary Malignant Neoplasm Of Prostate [...] st Contact Info) Description 07/23/2023 7:00 AM BANKING PIN ADJUSTER Appointment Department of Radiation Oncology in [place], [place] [address] [place] [address] [place] [address] documented as of this encounter Visit Diagnoses Diagnosis Primary Malignant Neoplasm Of Prostate (HCC)- Primary documented in this encounter
--- OUTSIDE RECORDS SUMMARY | 2023-07-13 15:20 | XMS_ITS | Encounter Summary ---
Author Name Unknown Organization [facility] Address [address] [place] [address] Care Team Providers Care Leaf Binner Name Role Phone Unavailable Primary Care Provider Unavailabl e Reason for Referral * Specialty Diagnoses / Procedures Referred By Contac t Referred To Contact Ana Rosa Fernandez APRN, C.N.P., D.N.P. [address] [place] [address] [facility] Referral ID Status Reason Start Date Expiration Date Visits Re quested Visits Authorized * Radiation Therapy (Routine) - Authorized Specialty Diagnoses / Procedures Referred By Contac t Referred To Contact Diagnoses Primary Malignant Neoplasm Of Prostate (HCC) Procedures Prior Auth Rad Tx Elijah Cedeno M.D. [address] [place] [address] [facility] Referral ID Status Reason Start Date Expiration Date V isits Requested Visits Authorized [id number] Authorized 03/22/2023 03/21/2024 1 1 * Radiation Therapy (Routine) - Closed Specialty Diagnoses / Procedures Referred By Contac t Referred To Contact Diagnoses Primary Malignant Neoplasm Of Prostate (HCC) Procedures Initial Rad Onc Treatment Planning CT Simulation Elijah Cedeno M.D. [address] [place] [phone] [facility] Referral ID Status Reason Start Date Expiration Date Visits Re quested Visits Authorized [id number] Closed 03/22/2023 03/21/2024 1 1 * Outpatient (Routine) - Closed Specialty Diagnoses / Procedures Referred By Jake henry Referred To Contact Radiation Oncology Elijah Cedeno M.D. [address] [place] [address] Elijah Cedeno M.D. [address] [place] [address] Referral ID Status Reason Start Date Expiration Date Visits Re quested Visits Authorized [id number] Closed 03/22/2023 03/21/2026 1 1 Scheduling Instructions At least 48 hours after rectal spacer placement, coordinate with Sim and MRI * Outpatient (Routine) - Authorized Specialty Diagnoses / Procedures Referred By Jake henry Referred To Contact Diagnoses Primary Malignant Neoplasm Of Prostate (HCC) Procedures US Prostate Fiducial Marker Placement with Hydrogel Spacer Elijah Cedeno M.D. [address] [place] [address] [facility] Referral ID Status Reason Start Date Expiration Date V isits Requested Visits Authorized [id number] Authorized 03/22/2023 03/21/2024 1 1 * MRI/CAT/PET Scan (Routine) - Authorized Specialty Diagnoses / Procedures Referred By Jake henry Referred To Contact Radiology Diagnoses Primary Malignant Neoplasm Of Prostate (HCC) Procedures MR Prostate without IV Contrast Elijah Cedeno M.D. [address] [place] [address] [place] [facility] Referral ID Status Reason Start Date Expiration Date V isits Requested Visits Authorized [id number] Authorized 03/22/2023 03/21/2024 1 1 * Radiation Therapy (Routine) - Authorized Specialty Diagnoses / Procedures Referred By Contac t Referred To Contact Diagnoses Primary Malignant Neoplasm Of Prostate (HCC) Procedures Management Visit Elijah Cedeno M.D. [address] [place] [phone] [facility] Referral ID Status Reason Start Date Expiration Date V isits Requested Visits Authorized [id number] Authorized 03/22/2023 03/21/2024 10 10 * Outpatient (Routine) - Closed Specialty Diagnoses / Procedures Referred By Jake henry Referred To Contact Radiation Oncology Elijah Cedeno M.D. [address] [place] [address] [facility] Referral ID Status Reason Start Date Expiration Date Visits Re quested Visits Authorized [id number] Closed 02/22/2023 02/21/2026 1 1 Reason for Visit * Outpatient (Routine) - Closed Specialty Diagnoses / Procedures Referred By Jake henry Referred To Contact Radiation Oncology Elijah Cedeno M.D. [address] [place] [phone] [facility] Referral ID Status Reason Start Date Expiration Date Visits Re quested Visits Authorized [id number] Closed 02/22/2023 02/21/2026 1 1 Encounter Details Date Type Department Care Team (Latest Contact Info) Description 03/22/2023 10:10 AM CDT - 03/23/2023 4:26 PM CDT Hospital Encounter Department of Radiation Oncology in [place] [id number] [place] [phone] Elijah Cedeno M.D. [address] [place] [address] Primary Malignant Neoplasm Of Prostate (HCC) (Primary Dx) Social History Tobacco Use Types Packs/Day Years Used Date Smoking Tobacco: Former Cigarettes 3 Q uit: 1984 Smokeless Tobacco: Never Alcohol Use Standard Drinks/Week [...] your living situation today? I have a [facility] place to live 03/15/2023 Sex and Gender Information Value Date Recorded Sex Assigned at Male 03/15/2023 12:48 PM CDT Gender Identity Male 03/15/2023 12:48 PM CDT Sexual Orientation Straight 03/15/2023 12 :48 PM CDT documented as of this encounter Last Filed Vital Signs Vital Sign Reading Time Taken Comments Blood Pressure 146/58 03/22/2023 10:31 AM CDT Pulse 97 03/22/2023 10:31 AM CDT Temperature 36.5 ??C (97.7 ??F) 03/22/2023 10:31 AM C DT Respiratory Rate - - Oxygen Saturation - - Inhaled Oxygen Concentration - - Weight 71 kg (156 lb 8.4 oz) 03/22/2023 10:31 AM CDT Height - - Body Mass Index - - documented in this encounter Medications at Time of Discharge [...] famotidine (PEPCID) 20 mg tablet 0 03/22/2022 ketoconazole (NIZORAL) 2 % cream APPLY TO AFFECTED AREA ON BACK AND NECK 2-3 TIMES WEEKLY ONGOING 0 lisinopriL (PRINIVIL,ZESTRIL) 40 mg tablet Take 1 tablet by mouth daily. 0 03/09/2022 nitroglycerin (NITROSTAT) 0.4 mg SL tablet 0 03/22/2022 omega 7-eye-ufh-fish oil (fish oil) 1,000 mg (120 mg-180 mg) capsule Take 4 capsules by mouth daily. 0 08/10/2011 rosuvastatin (CRESTOR) 5 mg tablet Take 1 tablet by mouth at bedtime. 0 06/13/2022 tamsulosin (FLOMAX) 0.4 mg 24 hr capsule Take 1 capsule (0.4 mg total) by mouth daily. 30 capsule 3 02/22/2023 hydrOXYzine (ATARAX) 25 mg tablet One oral every 6 hours as needed. 0 09/01/2021 cephalexin (KEFLEX) 500 mg capsule Take 1 capsule (500 mg total) by mouth as directed for 2 days. Take 1 the evening prior to the procedure and 1 the morning of the procedure. 2 capsule 0 06/20/2023 06/22/2023 documented as of this encounter Progress Notes * Ana Rosa Fernandez APRN, C.N.P., D.N.P. - 03/22/2023 10:30 AM CDT SUBJECTIVE DIAGNOSIS 1. Primary Malignant Neoplasm Of Prostate (HCC) SUPERVISED BY: Elijah Cedeno M.D. ([phone]) HISTORY OF PRESENT ILLNESS Mr. Kishore Corbin is a 77 y.o. male with stage IIB (cT2c, cN0, cM0, PSA 16.8, Grade Group 2), unfavorable intermediate risk, adenocarcinoma of the prostate. He returns today to see how he is handlingADT. His oncologic history is as follows: Oncology History Primary Malignant Neoplasm Of Prostate (HCC) 02/02/2015 Other 02/02/2015: PSA 3.23 ng/mL 06/08/2016: PSA 5.4 ng/mL 09/08/2016: PSA 4.37 ng/mL 05/18/2017: PSA 4.55 ng/mL 10/02/2017: PSA 5.47 ng/mL 02/19/2018: PSA 5.78 ng/mL 04/10/2018: Patient evaluated by Dr. Fritz Juarez, [facility]. JOSÉ MANUEL demonstrated normal sphincter tone, 30 g prostate, questionable 5 mm nodule at left apex, nontender. Mutually agreed to continue PSA monitoring 07/23/2018 Other 07/23/2018: PSA 5.08 ng/mL 02/19/2019: PSA 6.5 ng/mL 04/21/2019: Dr. Juarez recommended prostate biopsy, patient wished to proceed PSA monitoring. JOSÉ MANUEL normal sphincter tone, 30 gm, 5 mm nodule (Right apex/middle), NT 06/23/2019: PSA 6.41 ng/mL 11/18/2019: PSA 7.65 ng/mL 12/05/2019: PSA 6.46 ng/mL 01/14/2020 Critical Imaging MR prostate IMPRESSION: prostate midline length = 3.2 cm, Width at base = 4.4 cm, mid = 4.5 cm, apex = 3.8 cm. Estimated volume = 36.5 cc. 1. There are no PIRADS category 3/4/5 lesions by MRI. 2. There is an indeterminate lesion in the peripheral zone at the 4 o`clock position measuring 1 x 0.5 x 0.8 cm, with early phase enhancement after gadolinium. 3. However, this lesion is isointense on high B value DWI/ADC map. Technically, this is a PI-RADS category 1 lesion. 4. Suggest correlation with digital rectal exam. 5. There is no pelvic sidewall or periprostatic lymphadenopathy. 6. Normal marrow signal intensity in the pelvis/proximal femora. 04/29/2020 Other 04/29/2020: PSA 8.06 ng/mL 07/14/2020: PSA 11.84 ng/mL 09/16/2020: PSA 8.84 ng/mL 09/20/2020: Dr. Juarez again recommended prostate biopsy but patient declined. JOSÉ MANUEL normal sphinctertone, 30 gm, 6 mm nodule (Right apex), NT 03/24/2021: PSA 9.7 ng/mL 08/30/2021: PSA 13.55 ng/mL 11/29/2021: PSA 14.04 ng/mL 03/14/2022: PSA 16.07 ng/mL 09/21/2022: PSA 16.8 ng/mL 10/06/2022 Critical Imaging MR prostate FINDINGS: The prostate measures 4.1 x 3.2 x 4.7 cm common estimated volume = 32 cc. Lesion 1: Location: Left mid gland peripheral zone at the 4 o`clock position relative to the urethra. Size: 19 mm T2 description: Ill-defined hypodense T2 numerical assessment: 3 DCE assessment: Positive Prostate margin: Long segment capsular abutment without darien extension. Lesion overall PI-RADS category: 4 Extra-capsular extension or seminal vesicle invasion: None Roslyn-prostatic or pelvic side wall lymph nodes: None No other bony or soft tissue abnormalities identified. 12/22/2022 Biopsy/Pathology Final diagnosis: A. Left base-prostate -adenocarcinoma of the prostate -Yesi score 3+4=7 -discontinuously involving 90% of the length of the core -perineural invasion present -PIN4 supports diagnosis B. Left mid-prostate -adenocarcinoma of the prostate -Yesi score 3+4=7 -Involving 80-100% of the length of the cores -perineural invasion present C. Left apex-prostate -adenocarcinoma of the prostate -Drums score 3+4=7 -involving 80-90% of the length of the cores -perineural invasion not seen D. Right base-prostate -benign prostatic tissue E. Right mid-prostate -high-grade prostatic intraepithelial neoplasia, focal PIN4 supports diagnosis F. Right apex-prostate -adenocarcinoma of the prostate -Drums score 3+4=7 -discontinuously involving 5-20% of the length of the cores -perineural invasion not seen -PIN4 supports diagnosis G. Lesion 1 -Adenocarcinoma of prostate -Drums score 3+4=7 -Discontinuously involving 75-90% of the length of the cores -perineural invasion not seen -PIN4 supports diagnosis 02/28 cores positive 01/30/[address] abdomen and pelvis and bone scan were negative for metastatic disease 02/05/2023 Other Follow-up with Dr. Juarez to discuss treatment options, including surgery, cryotherapy, hormonal therapy, and radiation treatment. He recommended external radiation and ADT for 6 months. He did startthe patient on Casodex and ordered for Eligard injection. 02/06/2023 - Biological/Targeted/Hormone Therapy Initiated on ADT with 50 mg Casodex x4 weeks with Dr. Juarez 02/06/23. Discontinued on 02/22/23 due toside effects of intestinal discomfort. 03/01/2023: 240 mg Firmagon injection - [facility] Plan for a total 6 months. INTERVAL HISTORY The patient was seen and examined today with Dr. Cedeno. The patient reports doing well overall. He returns today after discontinuing bicalutamide and initiating Firmagon. He did stop his bicalutamide at the direction of Dr. Cedeno on February 22. He received a Firmagon injection on March 01. He also started 1 tablet Flomax at bedtime. He feels hisurinary symptoms are maybe slightly improved overall. He continues experiencing nocturia x2-3. He feels his urinary stream is stronger. As long as he minimizes his caffeine and water intake, he experiences minimal urinary leakage. He does associate urinary leakage with urinary urgency. He reports this happens maybe 2- 3 times per week. He denies wearing pads. He denies any hematuria or dysuria. He denies any changes to his urinary frequency. He denies any changes to his bowel movements. He reports daily soft bowel movements without blood or pain. He denies concerns with constipation or diarrhea. He does feel his mood is slightly lower over the last few weeks. He finds himself thinking about work, money, and managing all of his appointments. His ECOG performance status is 0. AUA SYMPTOM INDEX: 02/22/23: 32 (4, 5, 5, 5, 5, 5, 3) 03/22/23: 23 (4, 5, 3, 3, 2, 3, 3) IIEF-5 QUESTIONNAIRE: 03/22/23: 6 (1, 1, 1, 1, 2) - severe erectile dysfunction REVIEW OF SYSTEMS Review of systems was negative except as documented above. PATIENT REPORTED SYMPTOM SCREEN FATIGUE (Scale: 0 = no fatigue; 10 = worst fatigue you can imagine): 7 PAIN (Scale: 0 = no pain; 10 = worst pain you can imagine): 2 OVERALL QUALITY OF LIFE (Scale: 0 = as bad as can be; 10 = as good as can be): 5 OBJECTIVE BP 146/58 (BP Location: Right arm, Patient Position: Sitting, Cuff Size: Regular) Pulse 97 Temp36.5 ??C (Temporal) Wt 71 kg PHYSICAL EXAM General: Alert and oriented in no apparent distress. ASSESSMENT / PLAN #1 Stage IIB (cT2c, cN0, cM0, PSA: 16.8, Grade Group: 2) adenocarcinoma of the prostate #2 Androgen deprivation therapy initiated on February 06, 2023 with bicalutamide 50 mg daily, discontinued February 22, 2023 due to intestinal discomfort; received 240 mg Firmagon injection on March 01, 2023, anticipated 6 months #3 Significant lower urinary tract symptoms It was a pleasure to meet with Kishore today. He is tolerating ADT fairly well with no significant changes. He received a 240 mg Firmagon injection on March 01, 2023. He is scheduled for his next injection, 80 mg Firmagon, on March 29, 2023 at [facility]. We discussed continuing this for a total of at least 6 months with monthly injections. I reviewed Dr. Cedeno's recommendations of radiation therapy in 20 or 26 fractions. The patient did inquire about the previous discussion ofreceiving SBRT in [address] Cedeno reviewed the recommendations for that. We will have thepatient complete approximately 3 months of ADT in hopes to improve his overall urinary symptoms before initiating radiation therapy. We will schedule a follow-up visit in early/mid June with a planning CT scan and MRI to move forward with radiation treatment at that time. We will have him complete a rectal spacer placement prior to this follow-up. If his overall urinary symptoms improve, we will possibly consider SBRT at the time of simulation. I informed him of a new study we are pursuing, the RELIEF study. I discussed the protocol and randomization process with him regarding this study. I provided him with the protocol and consent information. He will think about this and get back to us if he would like to participate. Patient seen in collaboration with Dr. Cedeno, please review his attestation for additional information. He will contact us with questions or concerns. He verbally expressed his understanding of the plan. EDUCATION Ready to learn, no apparent learning barriers were identified; learning preferences include listening. Explained diagnosis and treatment plan; patient expressed understanding of the content. I personally spent 30 minutes in care of the patient today. Time includes both non face to face andface to face patient care. Signed by: Ana Rosa Fernandez APRN, C.N.P., D.N.P. 03/22/2023 11:05 AM CDT [facility] [address] [place] [address] Associated attestation - Elijah Cedeno M.D. - 03/23/2023 4:24 PM CDT I saw and evaluated the patient and participated in the dupont portions of the service. I reviewed thedocumentation of Ana Rosa Fernandez C.N.P. and agree with the findings and plan. The patient appearswell on exam. He returns today after initiation of ADT for unfavorable intermediate risk prostate cancer. He did not tolerate Casodex well. He does seem to be tolerating his Firmagon injection well that he received on March 01, 2023. We are aiming for 6 months of ADT total. He does have significant LUTS. These are improving as well. His AUA index score went down from 32 and we saw him a monthago to 23. He is taking Flomax at bedtime with only slight dizziness. We agreed to continue with total of 3 months of Firmagon injections prior to initiation of definitive radiotherapy. The patient is interested in SBRT. Explained that he needs to have improvement in his LUTS for us to consider this. Hopefully some cytoreduction with the ADT will accomplish this. We will plan to see him again in early to mid June. He would like to proceed with a rectal spacer and fiducial markers. We discussed the logistics of this. Does have a number of antibiotic allergies but is not allergic to Keflex, so he will take that the night before and the morning of the spacer placement. Does not have latex or contrast allergies. When he returns to see us we will also schedule a planning CT and MRI scan. Heunderstands that he needs to do a Fleet's enema the morning of that visit. Finally, we discussed pot ential enrollment in the RELIEF study. We provided him with a consent form for his review. We will discuss this further when he returns. He verbalized satisfaction with this plan. I spent a total of 30 minutes caring for the patient in [id number] and non [id number]-tm-[id number] time. Signed by: Elijah Cedeno M.D. 03/23/23 4:24 PM CDT [facility] [place] documented in this encounter Miscellaneous Notes * Addendum Note - Ramya Buchanan C.NLea - 03/22/2023 10:30 AM CDTEncounter addended by: Ramya Buchanan C.N.A. on: 03/26/2023 7:19 AM Actions taken: Letter saved documented in this encounter Plan of Treatment Upcoming Encounters Date Type Department Care Team (Late st Contact Info) Description 07/23/2023 7:00 AM LAUNDRY HELPER Appointment Department of Radiation Oncology in [place], [place] [address] [place] [address] Elijah Cedeno M.D. [address] [place] [address] Pending Results Name Type Priority Associated Diagnoses Date/Time Initial Rad Onc Treatment Planning CT Simulation Procedural Imaging Routine Primary Malignant Neoplasm Of Prostate (HCC) 07/13/2023 2:00 PM LAUNDRY HELPER Scheduled Orders Name Type Priority Associated Diagnoses Order Schedule Management Visit Radiation Oncology Routine Primary Malignant Neoplasm Of Prostate (HCC) 10 Occurrences starting 03/22/2023 until 03/22/2024 MR Prostate without IV Contrast Imaging RAD - Routine (most inpatients and all outpatients) Primary Malignant Neoplasm Of Prostate (HCC) Expected: 06/28/2023 (Approximate), Expires: 03/22/2024 PSA (Prostate-Specifi c Antigen), Diagnostic Lab Routine Primary Malignant Neoplasm Of Prostate (HCC) Expected: 06/25/2023, Expires: 06/29/2025 Prostate Fiducial Marker Placement with Hydrogel Spacer Imaging RAD - Routine (most inpatients and all outpatients) Primary Malignant Neoplasm Of Prostate (HCC) Expected: 06/25/2023 (Approximate), Expires: 06/22/2024 Testosterone, Total by Mass Spectrometry, Serum Lab Routine Primary Malignant Neoplasm Of Prostate (HCC) Expected: 06/25/2023 (Approximate), Expires: 06/22/2024 Prior Auth Rad Tx Radiation Oncology Routine Primary Malignant Neoplasm Of Prostate (HCC) Ordered: 03/22/2023 Scheduled Referrals Name Type Priority Associated Diagnoses Order Schedule Radiation Oncology office visit (clinic) Outpatient Referral Routine Once for 1 Occurrences starting 03/22/2023 until 03/22/2023 Radiation Oncology office visit (clinic) Outpatient Referral Routine Expected: (Approximate), Expires: 03/22/2024 Radiation Oncology - PRO education visit Outpatient Referral Routine Primary Malignant Neoplasm Of Prostate (HCC) Expected: 03/22/2023 (Approximate), Expires: 06/22/2024 documented as of this encounter Visit Diagnoses Diagnosis Primary Malignant Neoplasm Of Prostate (HCC)- Primary documented in this encounter
--- OUTSIDE RECORDS SUMMARY | 2023-07-13 15:20 | XMS_ITS | Encounter Summary ---
Author Name Unknown Organization [facility] Address [address] [place] [address] Care Team Providers Care Journeyman Millwright Name Role Phone Unavailable Primary Care Provider Unavailabl e Encounter Details Date Type Department Care Team (Late st Contact Info) Description 03/22/2023 Abstract [facility] [place], [place] [address] [place] [address] Provider, Historical Social History Tobacco Use Types Packs/Day Years [...] your living situation today? I have a [facility] place to live 03/15/2023 Sex and Gender Information Value Date Recorded Sex Assigned at Male 03/15/2023 12:48 PM CDT Gender Identity Male 03/15/2023 12:48 PM CDT Sexual Orientation Straight 03/15/2023 12 :48 PM CDT documented as of this encounter Plan of Treatment Upcoming Encounters Date Type Department Care Team (Late st Contact Info) Description 07/23/2023 7:00 AM INTERIOR SPECIALIST Appointment Department of Radiation Oncology in [place], [place] [address] [place] [phone] Elijah Cedeno M.D. [address] [place] [address] documented as of this encounter Visit Diagnoses Not on filedocumented in this encounter
--- OUTSIDE RECORDS SUMMARY | 2023-07-13 15:20 | XMS_ITS | Encounter Summary ---
Author Name Unknown Organization [facility] Address [address] [place] [address] Care Team Providers Care Wallpaper Printer Helper Name Role Phone Unavailable Primary Care Provider Unavailabl e Encounter Details Date Type Department Care Team (Late st Contact Info) Description 03/21/2023 Orders Only Department of Radiation Oncology in [place], [place] [address] [place] [address] Rayne Al Social History Tobacco Use Types Packs/Day Years [...] your living situation today? I have a [facility] place to live 03/15/2023 Sex and Gender Information Value Date Recorded Sex Assigned at Male 03/15/2023 12:48 PM CDT Gender Identity Male 03/15/2023 12:48 PM CDT Sexual Orientation Straight 03/15/2023 12 :48 PM CDT documented as of this encounter Plan of Treatment Upcoming Encounters Date Type Department Care Team (Late st Contact Info) Description 07/23/2023 7:00 AM DEGREASING SOLUTION MIXER Appointment Department of Radiation Oncology in [place], [place] [address] [place] [phone] Elijah Cedeno M.D. [address] [place] [address] documented as of this encounter Visit Diagnoses Not on filedocumented in this encounter
--- OUTSIDE RECORDS SUMMARY | 2023-07-13 15:20 | XMS_ITS | Clinical Summary ---
Author Name Unknown Organization [facility] Address [place], [place] [address] Care Team Providers Care Fruit Farmworker Name Role Phone Franki Daley MD Primary Care Provider Archie Hung MD Unavailable [phone] Allergies Active Allergy Reactions Criticality Noted Date Comments Allopurinol Other - Describe In Comment Field 12/25/2012 drowsy Carvedilol Other - Describe In Comment Field 03/22/2022 spacey Chlorthalidone Hyponatremia Low 09/29/2008 Ciprofloxacin Hcl Constipation High 01/04/2023 Clindamycin 12/13/2010 Ezetimibe Headache 07/01/2018 Headaches stiffness, fatigue, muscle and joint pain and intestinal discomfort. 07/01/2018 Hydrochlorothiazide Other - Describe In Comment Field 09/13/2011 Stopped to help urinary frequency Escitalopram Other - Describe In Comment Field 12/08/2022 Multiple symptoms. Omeprazole Other - Describe In Comment Field 12/25/2012 Abdominal cramps Rosuvastatin Myalgia 03/15/2017 Eakgqwe-Xjr-Sml Reductase Inhibitors Low 10/02/2007 Tried Zocor and Lipitor caused muscle aches/weakness. Tamsulosin Dizziness 05/11/2023 Medications Medication Sig Dispensed Refills Start Date End Date Status COENZYME Q10 200 MG CAPIndications:ASC VD (arteriosclerotic cardiovascular disease) Take 200 mg by mouth once daily. 0 9 Active omega-3 fatty acids-vitamin E (FISH OIL) 1,000 mg Cap Take 2 Capsules by mouth two times daily. 0 2 Active cholecalciferol (VITAMIN D) 1,000 unit capsule Take 1 capsule by mouth 2 times daily. 0 2 Active aspirin chewable 81 mg chewable tablet Take 1 tablet by mouth or nasogastric tube once daily. 0 6 Active Blood Glucose Control High&Low (ACCU-CHEK COMPACT PLUS CONTROL) solnIndications:Ty pe 2 diabetes mellitus without complication, without long-term current use of insulin (HC) As directed 1 Drop. 1 Bottle 0 8 Active ACCU-CHEK FASTCLIX LANCET DRUMIndications:Di abetes mellitus without complication (HC) DISPENSE ITEM COVERED BY PT INS. E11.9 NIDDM TYPE II - TEST 1 TIME/DAY, REASON: HIGH A1C 102 Each 3 0 Active Blood-Glucose MeterIndications:T ype 2 diabetes mellitus without complication, without long-term current use of insulin (HC) Dispense glucose meter (Accu Chek Nicky), test strips and lancets covered by the patient insurance. Test 1 times per day. E 11.9. 1 Device 0 1 Active clobetasol cream 0.05% (TEMOVATE) 0.05 % cream APPLY TO AFFECTED AREA ON HANDS TWICE A DAY FOR 2 WEEKS , TAKE 2 WEEK BREAK THEN REPEAT NEEDED FOR FLARES 0 2 Active Accu-Chek Guide test strips stripIndications:D iabetes mellitus without complication (HC) TEST 1 TIME DAILY 100 Each 4 3 Active acyclovir (ZOVIRAX) 200 mg capsuleIndications :Herpes simplex virus (HSV) infection Take 1 Capsule (200 mg) by mouth 5 times daily. As needed. 50 Capsule 2 3 Active amLODIPine (NORVASC) 2.5 mg tabletIndications: Benign essential HTN Take 1 Tablet (2.5 mg) by mouth once daily. 90 Tablet 3 3 Active nitroglycerin (NITROSTAT) 0.4 mg sublingual tabletIndications: ASCVD (arteriosclerotic cardiovascular disease) Place 1 Tablet (0.4 mg) under the tongue every 5 minutes if needed for Chest Pain. 3 Dose Limit per chest pain episode. Do not crush or chew. 25 Tablet 2 3 Active rosuvastatin (CRESTOR) 5 mg tabletIndications: Dyslipidemia Take 1 Tablet (5 mg) by mouth at bedtime. 90 Tablet 3 3 Active lisinopriL (PRINIVIL; ZESTRIL) 40 mg tabletIndications: Hypertension, unspecified type Take 1 Tablet (40 mg) by mouth once daily. 90 Tablet 3 3 Active degarelix (Firmagon kit w diluent syringe) 80 mg subcutaneous injection Inject 80 mg subcutaneous every 4 weeks. 0 Active multivitamins-mine rals-lutein (Multivitamin 50 Plus) tab tablet Take 1 Tablet by mouth once daily. 0 Active ascorbic acid, vitamin C, (Vitamin C) 1,000 mg tablet Take 1,000 mg by mouth once daily. 0 Active Grape Seed Extract 50 mg cap Take 1 Capsule by mouth once daily. 0 Active isosorbide mononitrate (IMDUR) 30 mg extended release tablet 24 HourIndications: CVD (arteriosclerotic cardiovascular disease) Take 1 Tablet (30 mg) by mouth once daily. 30 Tablet 2 4 Active hydrOXYzine HCL (ATARAX) 25 mg tabletIndications: Anxiety One oral every 6 hours as needed. 30 Tablet 2 2 06/27/19 24 Discontinued( Pharmacist change per medication history (E-cancel not sent)) medication order composerIndication s:RUSH (obstructive sleep apnea) 05/31/2022 AHI- 9; diagnosis obstructive sleep apnea MRD #1 1 unit 0 3 06/27/19 24 Discontinued( Pharmacist change per medication history (E-cancel not sent)) famotidine (PEPCID) 40 mg tabletIndications: Gastroesophageal reflux disease without esophagitis Take 1 Tablet (40 mg) by mouth once daily. 180 Tablet 3 3 06/27/19 24 Discontinued( Pharmacist change per medication history (E-cancel not sent)) Active Problems Problem Noted Date Diagnosed Date Abnormal stress test 06/27/2023 Prostate cancer 03/28/2023 Chronic GERD 03/28/2023 Carotid artery disease, unsp ecified laterality, unspecified type 11/24/2022 Anxiety 09/01/2021 Lumbar radiculopathy 03/10/2021 Type 2 diabetes mellitus wit h complication, without long-term current use of insulin 03/03/2020 Skin cancer 04/09/2018 Overview: 04/02/18 RIGHT HINDU: At least squamous cell carcinoma in situ (see comment): MOHS 06/25/18 Herrera Elevated PSA 05/19/2017 Gout 12/25/2012 Dyslipidemia 12/25/2012 Erectile dysfunction 07/22/2008 Hiatal hernia 02/27/2008 ASCVD (arteriosclerotic cardiovascular disease) 02/27/2008 Overview: CABG 02/28/[address] Andrew VANCE to LAD, SVBG to the diagonal, sequential SVBG to OM and intermediate Benign essential HTN 10/02/2007 Resolved Problems Problem Noted Date Diagnosed Date Resolved Date Type 2 diabetes mellitus without complication 11/26/19 16 03/22/2022 Former smoker 11/22/2015 03/10/2021 Angina pectoris 11/22/2015 03/03/2020 Routine adult health maintenance 09/16/2013 03/03/2020 Overview: Colonoscopy 08/2013 diverticulosis repeat in 10 years Type II diabetes mellitus 12/25/2012 Stress at work 07/22/2008 03/10/2021 Abnormal cardiovascular stress test 02/27/2008 11/22/2015 Overview: -Stress on 02/25/08 stopped at 5 min 41 sec due to chest pain and EKG changes: ST depressions inferiorly and laterally with resolution at ll min recovery. CP resolved with nitro. Query R Inguinal Hernia 02/27/200802/17 Other and unspecified angina pectoris 10/02/2007 03/03/2020 Overview: -on and off for last 10 years. Positive stress 5 years ago but no angio due to finances -recent increase in rest sxs and during stress test had sxs. Herpes simplex without menti on of complication 10/02/2007 03/10/2021 Overview: -has about 2 outbreaks/yr Hyperlipidemia LDL goal < 100 09/05/2013 Impaired fasting glucose Encounters Date Type Department Care Team Description 07/09/2023 8:00 AM GAS DIST[employer]ION PLANT OPERATOR Office Visit [facility] [address] [facility] [place] [address] Carlene Avilez, [facility] Visit 07/09/2023 Travel 07/05/2023 4:10 PM G[employer] DIST[employer]ION [employer]ANT OPERATOR Office Visit [facility] [address] [facility] [place] [address] Franki Daley MD Hospital F/U (ANW, 06/27/2023 - 06/28/2023, angiogram) 07/05/2023 Travel 07/03/2023 10:50 AM G[employer] DIST[employer]ION PLANT OPERATOR Orders Only [facility] [address] [place] [address] Lab, [place] [facility] 07/03/2023 Travel 07/02/2023 Orders Only [facility] [address] [facility] [place] [address] Franki Daley MD Outside Order (Ordered by Elijah Cedeno) 06/29/2023 Patient Outreach [facility] [address] [address] Lucia Rivera, ISMAEL Primary RN Care Management (LACE 47); Hospital F/U 06/27/2023 11:25 AM G[employer] DIST[employer]ION PLANT OPERATOR - 06/28/2023 11:30 AM G[employer] DIST[employer]ION PLANT OPERATOR Hospital Encounter [facility] [address] [place] [address] Jacek Shirley MD ASCVD (arteriosclerotic cardiovascular disease) Discharge Disposition: Home Self Care 06/27/2023 Travel 06/25/[address] [address] MiMiguel grider MD Questions (Angiogram questions) 06/19/2023 8:00 AM G[employer]ION [employer] OPERATOR Office Visit [facility] [address] [place] [address] Carlene Avilez [facility] Visit 06/19/2023 Travel 06/07/2023 Telephone [facility] Jonna Rosado [address] [place] [address] [address] [address] Miguel Church MD OTHER; Imaging (Angiogram offered for ANW or [place]) 06/06/2023 11:30 AM G[employer] DIST[employer]ION PLANT OPERATOR - 06/06/2023 11:59 PM GAS DIST[employer]ION PLANT OPERATOR Hospital Encounter [facility] [address] [place] [address] Miguel Church MD Stephanie Joseph Chest pain, unspecified type 06/06/2023 10:33 AM G[employer]ION PLANT OPERATOR - 06/06/2023 11:29 AM [employer]ANT OPERATOR Hospital Encounter [facility] [address] [place] [address] Miguel Church MD Chest pain, unspecified type 06/06/2023 Telephone [facility] [address] [place] [address] Miguel Church MD Results 06/06/2023 Travel 06/04/2023 8:00 AM G[employer] OPERATOR Office Visit [facility] [address] [place] [address] Carlene Avilez [facility] Visit 06/04/2023 Travel 06/02/2023 Refill [facility] [address] [place] [address] Franki Daley MD Refill Request (Rosuvastatin) 05/28/2023 2:30 PM G[employer] OPERATOR Office Visit [facility] [place] [address] [address] [place] [address] Miguel Church MD CV General Cardiology Est (f/u annual ) 05/28/2023 Travel 05/21/2023 8:00 AM G[employer] OPERATOR Office Visit [facility] [address] [place] [address] Carlene Avilez [facility] Visit 05/21/2023 Travel 05/17/2023 2:51 PM G[employer] DIST[employer]ION [employer]ANT OPERATOR - 05/17/2023 11:59 PM G[employer] DIST[employer]ION PLANT OPERATOR Hospital Encounter [facility] [address] [place] [address] Franki Daley MD Hill, Gwenda L, RD Prostate cancer (HC); Diabetes mellitus without complication (HC) 05/11/2023 1:40 PM G[employer]ION [employer]ANT OPERATOR Office Visit [facility] [address] [place] [address] Franki Daley MD ER Follow up ([facility], 05/04/2023, chest pain) 05/11/2023 Travel 05/09/2023 8:00 AM G[employer] OPERATOR Office Visit [facility] [address] [place] [address] Carlene Avilez [facility] Visit 05/09/2023 Telephone [facility] [address] [place] [address] Carlene Avilez [facility] Error-please disregard 05/09/2023 Travel 05/04/2023 8:43 AM G[employer] DIST[employer]ANT OPERATOR - 05/04/2023 12:39 PM GAS DIST[employer]ION PLANT OPERATOR Emergency [address] [address] Ti Kee MD Atypical chest pain (Primary Dx); Epigastric pain Discharge Disposition: Home Self Care 05/04/2023 Travel 05/02/2023 9:00 AM G[employer] OPERATOR Office Visit [facility] [address] [place] [address] Carlene Avilez [facility] Visit 05/02/2023 Travel 04/19/2023 8:00 AM CDT Office Visit [facility] [address] [place] [address] Carlene Avilez [facility] Visit 04/19/2023 Travel from Last 3 Months Immunizations Name Administration Dates Next Due COVID-19 Vaccine Spikevax (M oderna 50mcg/0.5mL) 12YO+ 3098-9327 Formula PF 03/28/2023 COVID-19 vaccine (Pfizer-Bio NTech 30mcg/0.3mL) 12YO+ BIVALENT PF, MDV 11/24/2022,03/22/2022 COVID-19 vaccine ([employer] NTech 30mcg/0.3mL) 12YO+ ANI-SUCROSE PF, MDV 10/17/2021 COVID-19 vaccine ([facility] NTech 30mcg/0.3mL) PF, MDV 04/19/2021,08/31/2020,08/10/2020 DTaP 12/30/2008 Influenza, High-dose Inactivated 05/25/2016,05/18 Influenza, IIV3 (Age >=3 years) 03/12/2012 Influenza, Inactivated AIIV4 (Age 65+ Years) Preserv Free 03/30/2023,03/22/2022,03/10/2021,03/03 Influenza, Inactivated IIV3 (Age 65+ Years) Preserv Free 02/24/2019,02/21/2018,03/05/2017 Pneumococcal Conj 20-valent (Prevnar 20) 04/05/2023 Pneumococcal Poly,23-Valent (Pneumovax) 09/05/2013 Pneumococcal conj 13-Valent (Prevnar 13) 02/02/2015 RSV, Bivalent Vaccine Recons tituted (Abrysvo 120MCG/0.5mL) 03/13/2023 Tdap 03/26/2019,12/30/2008 Zoster (Shingrix-RZV, recombinant) 02/12/2019, Zoster (Zostavax-ZVL, live) 11/30/2009 Family History Medical History Relation Name Comments Alcohol/Drug Brother 2 Heart Disease Brother 3 Heart Disease Father d85 Alcohol/Drug Mother Diabetes Mother Heart Disease Mother Cancer-colon Neg. 1 Cancer-prostate Neg. 2 Relation Name Status Comments Brother 1 (Age 55) Brother 2 Brother 3 Father (Age 85) Mother (Age 60) Neg. 1 Neg. 2 Social History Tobacco Use Types Packs/Day Years Used Date Smoking Tobacco: Former Cigarettes 3 20 1 965 - 06/18/1984 Smokeless Tobacco: Never Tobacco Cessation:Counseling Given: No Comments:smoked 2-3 ppd for 27yrs. 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; off alcohol since 1980 PHQ-2 Answer Date Recorded PHQ-2 TOTAL SCORE 2 03/28/2023 Social Connections Answer Date Recorded Frequency of Communication with Friends and Fami ly Not on file 03/23/2023 Financial Resource Strain Answer Date R ecorded Difficulty of Paying Living Expenses 3 03/22/2022 Difficulty of Paying Living Expenses Not on file 03/22/2022 Food Insecurity Answer Date Recorded Worried About Running Out of Food in the Last Ye ar 1 03/22/2022 Transportation Needs Answer Date Record ed Lack of Transportation (Medical) 1 03/22/2022 Housing Stability Answer Date Recorded Unable to Pay for Housing in the Last Year 1 03/22/2022 Sex and Gender Information Value Date Recorded Sex Assigned at Not on file Gender Identity Not on file Sexual Orientation Not on file Obstetrics History Last Filed Vital Signs Vital Sign Reading Time Taken Comments Blood Pressure 136/70 07/05/2023 4:13 PM G[employer] OPERATOR Pulse 83 07/05/2023 4:13 PM G[employer] DIST[employer]ANT OPERATOR Temperature 36.7 ??C (98 ??F) 06/28/2023 8:17 AM GAS DIST[employer]ION [employer]ANT OPERATOR Respiratory Rate 16 06/28/2023 8:17 AM G[employer] DIST[employer]ION PLANT OPERATOR Oxygen Saturation 100% 07/05/2023 4:13 PM G[employer] OPERATOR Inhaled Oxygen Concentration - - Weight 73.3 kg (161 lb 9.6 oz) 07/05/2023 4:13 P M G[employer]ION [employer]ANT OPERATOR Height 175.3 cm (5' 9) 06/27/2023 12:03 PM G[employer] OPERATOR Body Mass Index 23.86 06/27/2023 12:03 PM G[employer]ION [employer] OPERATOR Plan of Treatment Upcoming Encounters Date Type Department Care Team (Late st Contact Info) Description 07/30/2023 8:00 AM GAS DIST[employer]ION PLANT OPERATOR Office Visit [facility] [address] [place] [address] Carlene Avilez, [facility] [address] [place] [address] 08/13/2023 4:30 PM G[employer] DIST[employer]ION [employer] OPERATOR Office Visit [address] [phone] Sd Abbasi, PsyD, LP [address] [place] [address] 08/27/2023 7:00 AM CDT Orders Only [facility] [address] [place] [address] [place], [place] 09/04/2023 8:00 AM CDT Office Visit [facility] [address] [facility] [address] Franki Daley MD [address] [place] [address] 09/07/2023 11:00 AM CDT Office Visit [facility] [address] [place] [address] Cary Ryan, B[employer]ILL UTILITY OPERATOR [address] [place] [address] Health Maintenance Due Date Last Done Comments COVID-19 vaccine series (2022- season) 2023 03/28/2023, 11/24/2022, 03/22/2022, Additional history exists Colonoscopy through age 75 09/17/2023 09/16/2013, Medicare Wellness for age 65+ 03/27/2024, 03/22/2022, 03/10/2021, Additional history exists Depression screening for age 12+ 03/30/2024 03/30/2023, 03/28/2023, 01/31/2023, Additional history exists BMI (ht and wt on same day) for age 18+ 05/28/2024 05/28/2023, 03/28/2023, 05/10/2022, Additional history exists Lipids for age 45-75 03/22/2028 03/22/2023, 03/14/2022, 03/07/2021, Additional history exists Tetanus booster 03/26/2029 03/26/2019, 12/30/2008 Hepatitis C screening for ag e 18-79 Completed 02/02/2015 Zoster (shingles) series for age 50+ Completed 02/12/2019, 12/06/2018, 11/30/2009 Tdap Completed 03/26/2019, 12/30/2008 Influenza for age 65+ Completed 03/30/2023 , 03/22/2022, 03/10/2021, Additional history exists Pneumococcal series for age 65+ Completed 04/05/2023, 02/02/2015, 09/05/2013 Procedures Procedure Name Priority Date/Time Associated Diagnosis Comments PSA TOTAL (DIAGNOSTIC) Routine 10:54 AM G[employer] OPERATOR Malignant neoplasm of prostate (HC) BASIC METABOLIC PANEL Early AM 06/28/2023 5:24 AM GAS DIST[employer]ION PLANT OPERATOR CBC W PLT NO DIFF Early AM 06/28/2023 5:2 4 AM GAS DIST[employer]ION PLANT OPERATOR SCAN-CARDIAC STRIP 06/28/2023 2: 30 AM GAS DIST[employer]ION PLANT OPERATOR HEMATOCRIT Today 06/27/2023 9:37 PM GAS DIST[employer]ION PLANT OPERATOR HEMOGLOBIN Today 06/27/2023 9:37 PM GAS DIST[employer]ION PLANT OPERATOR GLUCOSE METER Timed 06/27/2023 9:31 PM G[employer] DIST[employer]ION [employer]ANT OPERATOR GLUCOSE METER Timed 06/27/2023 6:57 PM GAS DIST[employer]ION PLANT OPERATOR GLUCOSE METER Timed 06/27/2023 6:22 PM GAS DIST[employer]ION PLANT OPERATOR EKG 12 LEAD LILIBETH 06/27/2023 6:11 PM GAS DIST[employer]ION PLANT OPERATOR CVL CORONARY ANGIOGRAM POSS PCI Routine 06/27/2023 2:55 PM G[employer] DIST[employer]ION [employer]ANT OPERATOR ASCVD (arteriosclerotic cardiovascular disease) EKG 12 LEAD LILIBETH 06/27/2023 12:27 PM G[employer] DIST[employer]ION PLANT OPERATOR BASIC METABOLIC PANEL LILIBETH 06/27/2023 12:11 PM GAS DIST[employer]ION PLANT OPERATOR CBC W PLT NO DIFF LILIBETH 06/27/2023 12: 11 PM GAS DIST[employer]ION [employer]ANT OPERATOR STRESS TEST ONLY PHARMACOLOGICAL W/O IMAGING Routine 06/06/2023 12:02 PM G[employer]ION [employer] OPERATOR Chest pain, unspecified type PET CT CARDIAC PERFUSION MULTIPLE REST AND STRESS Routine 06/06/2023 12:01 PM G[employer] OPERATOR Chest pain, unspecified type EKG 12 LEAD Routine 05/28/2023 Dyslipidemia HEMOGLOBIN Routine 05/11/2023 2:09 PM G[employer] OPERATOR Anemia of unknown etiology FERRITIN Routine 05/11/2023 2:09 PM G[employer] OPERATOR Anemia of unknown etiology FOLIC ACID Routine 05/11/2023 2:09 PM G[employer] OPERATOR Anemia of unknown etiology IRON PLUS IRON BINDING CAP Routine 05/11/2023 2:09 PM G[employer] DIST[employer]ION [employer]ANT OPERATOR Anemia of unknown etiology VITAMIN B12 Routine 05/11/2023 2:09 PM G[employer] DIST[employer]ION [employer] OPERATOR Anemia of unknown etiology TROPONIN T (HS) ONE TIME Timed 05/04/2023 11:28 AM GAS DISTRI[employer]ION PLANT OPERATOR XR CHEST 2 VIEWS PA AND LATERAL STAT 05/04/2023 9:33 AM GAS DIST[employer]ION PLANT OPERATOR PRO-BNP STAT 05/04/2023 9:16 AM GAS DIST[employer]ION PLANT OPERATOR BASIC METABOLIC PANEL STAT 05/04/2023 9:16 AM GAS DISTRI[employer]ION PLANT OPERATOR CBC W PLT NO DIFF STAT 05/04/2023 9:1 6 AM GAS DISTRI[employer]ION PLANT OPERATOR TROPONIN T (HS) ACUTE W/2HR REFLEX STAT 05/04/2023 9:16 AM GAS DISTRI[employer]ION PLANT OPERATOR EKG 12 LEAD STAT 05/04/2023 8:55 AM GAS DISTRI[employer]ION PLANT OPERATOR from Last 3 Months Results * PSA TOTAL (DIAGNOSTIC) (07/03/2023 10:54 AM GAS DISTRI[employer]ION PLANT OPERATOR) PSA TOTAL (DIAGNOSTIC) 0.22 <4.00 ng/mL 07/03/2023 10:30 PM GAS DISTRI[employer]ION PLANT OPERATOR [facility] Blood BLOOD SPECIMEN / Unknown Venipuncture / Unknown 07/03/2023 10:54 AM GAS DISTRI[employer]ION PLANT OPERATOR 07/03/2023 10:54 AM GAS DISTRIBUTION PLANT OPERATOR [facility] - 07/03/2023 10:30 PM GAS DISTRI[employer]ION PLANT OPERATOR The test method changed on 12/12/2022. If this test has been used for serial monitoring, rebaselining is recommended. Rebaselining consists of 2 measurements, collected 3-6 weeks apart. The Roxi Elecsys total PSA assay is an electrochemiluminescence immunoassay ECLIA performed on the Roxi Manuel e immunoassay analyzers. Values obtained with different assay methods may be different and cannot be used interchangeably. Franki Daley MD CHEMISTRY [facility] [address] [place] [address], * (ABNORMAL) CBC with Platelets no Differential (06/28/2023 5:24 AM GAS DISTRI[employer]ION PLANT OPERATOR) Only the most recent of3 resultswithin the time period is included. WHITE BLOOD COUNT 5.7 4.5 - 11.0 thou/cu mm 06/28/2023 5:39 AM [facility] RED BLOOD COUNT 3.91(L) 4.30 - 5.90 mil/cu mm 06/28/2023 5:39 AM [facility] HEMOGLOBIN 12.3(L) 13.5 - 17.5 g/dL 06/28/2023 5:39 AM [facility] HEMATOCRIT 35.1(L) 37.0 - 53.0 % 06/28/2023 5:39 AM [facility] MCV 90 80 - 100 fL 06/28/2023 5:39 AM [facility] MCH 31.5 26.0 - 34.0 pg 06/28/2023 5:39 AM [facility] MCHC 35.0 32.0 - 36.0 g/dL 06/28/2023 5:39 AM [facility] RDW 11.9 11.5 - 15.5 % 06/28/2023 5:39 AM [facility] PLATELET COUNT 179 140 - 440 thou/cu mm 06/28/2023 5:39 AM [facility] MPV 10.0 6.5 - 11.0 fL 06/28/2023 5:39 AM [facility] NRBC 0.0 % 06/28/2023 5:39 AM [facility] ABS NRBC 0.0 thou /cu mm 06/28/2023 5:39 AM [facility] Blood BLOOD SPECIMEN / Unknown Butterfly / Unknown 06/28/2023 5:24 AM GAS DIST[employer]ION PLANT OPERATOR 06/28/2023 5:36 AM GAS DISTRI[employer]ION PLANT OPERATOR Jayna Miles MD HEMATOLOGY [facility] [address] [address], * (ABNORMAL) Basic Metabolic Panel (06/28/2023 5:24 AM GAS DISTRI[employer]ION PLANT OPERATOR) Only the most recent of3 resultswithin the time period is included. SODIUM 133(L) 136 - 145 mmol/L 06/28/2023 6:12 AM [facility] POTASSIUM 4.3 3.5 - 5.1 mmol/L 06/28/2023 6:12 AM [facility] CHLORIDE 101 98 - 107 mmol/L 06/28/2023 6:12 AM [facility] CO2,TOTAL 20(L) 22 - 29 mmol/L 06/28/2023 6:12 AM [facility] ANION GAP 12 5 - 18 06/28/2023 6:12 AM [facility] GLUCOSE 99 70 - 99 mg/dL 06/28/2023 6:12 AM [facility] CALCIUM 10.1 8.8 - 10.2 mg/dL 06/28/2023 6:12 AM [facility] BUN 23 8 - 23 mg/dL 06/28/2023 6:12 AM [facility] CREATININE 0.89 0.70 - 1.20 mg/dL 06/28/2023 6:12 AM GAS DISTRI[employer]ION PLANT OPERATOR [facility] BUN/CREAT RATIO 26(H) 10 - 20 6:12 AM GAS DISTRI[employer]ION PLANT OPERATOR [facility] eGFR 89(L) >90 mL/min/1.7 3m2 06/28/2023 6:12 AM [facility] Comment:As of 2021, eG FR is calculated by the CKD-EPI creatinine equation without race adjustment. ??eGFR can be influenced by muscle mass, exercise, and diet. ??The reported eGFR is an estimation only and is only applicable if the renal function is stable. Blood BLOOD SPECIMEN / Unknown Butterfly / Unknown 06/28/2023 5:24 AM GAS DISTRI[employer]ION PLANT OPERATOR 06/28/2023 5:36 AM GAS DISTRIBUTION PLANT OPERATOR Jayna Miles MD CHEMISTRY [facility] [address] [place] [address], * SCAN-CARDIAC STRIP (06/28/2023 2:30 AM GAS DISTRI[employer]ION PLANT OPERATOR) Scanner OTHER * (ABNORMAL) HEMOGLOBIN (06/27/2023 9:37 PM GAS DISTRI[employer]ION PLANT OPERATOR) Only the most recent of2 resultswithin the time period is included. HEMOGLOBIN 12.3(L) 13.5 - 17.5 g/dL 06/27/2023 9:55 PM GAS DISTRI[employer]ION PLANT OPERATOR [facility] MCV 91 80 - 100 fL 06/27/2023 9:55 PM GAS DISTRI[employer]ION PLANT OPERATOR [facility] Blood BLOOD SPECIMEN / Unknown Non-Lab Venipuncture / Unknown 06/27/2023 9:37 PM GAS DISTRI[employer]ION PLANT OPERATOR 06/27/2023 9:45 PM GAS DISTRI[employer]ION PLANT OPERATOR Jayna Miles MD HEMATOLOGY [facility] [address] [place] [address], * (ABNORMAL) HEMATOCRIT (06/27/2023 9:37 PM GAS DISTRI[employer]ION PLANT OPERATOR) [facility] HEMATOCRIT 35.5(L) 37.0 - 53.0 % 06/27/2023 9:55 PM GAS DIST[employer]ION PLANT OPERATOR [facility] Blood BLOOD SPECIMEN / Unknown Non-Lab Venipuncture / Unknown 06/27/2023 9:37 PM G[employer] DIST[employer]ION PLANT OPERATOR 06/27/2023 9:45 PM GAS DISTRI[employer]ION PLANT OPERATOR Jayna Miles MD HEMATOLOGY Performing Organization Address [facility] Co de Phone Number [facility] [address] [place] [address], [place] * GLUCOSE METER (06/27/2023 9:31 PM GAS DIST[employer]ION PLANT OPERATOR) Only the most recent of3 resultswithin the time period is included. [facility] GLUCOSE METER 99 65 - 100 mg/dL 06/27/2023 11:22 PM GAS DIST[employer]ION PLANT OPERATOR [facility] Blood BLOOD SPECIMEN / Unknown 06/27/2023 9:31 PM G[employer] DIST[employer]ION PLANT OPERATOR 06/27/2023 11:22 PM G[employer] DISTRI[employer]ION PLANT OPERATOR Jacek Shirley MD CHEMISTRY Performing Organization Address [facility] Phone Number [facility] [address] [place] [address], [place] * EKG - On Arrival to Floor (06/27/2023 6:11 PM G[employer] DIST[employer]ION PLANT OPERATOR) Only the most recent of4 resultswithin the time period is included. Pathologist [facility] Interpretation Sinus rhythm with marked sinus arrhythmia Rightward axis Borderline ECG When compared with ECG of 27-JUN-2023 12:27, No significant change was found BEYOND NOW Ventricular Rate 76 BPM BEYOND NOW Atrial Rate 76 BPM BEYOND NOW P-R Interval 198 ms BEYOND NOW QRS Duration 92 ms BEYOND NOW QT 402 ms BEYOND NOW QTc 452 ms BEYOND NOW P [place] 82 degrees BEYOND NOW R [place] 92 degrees BEYOND NOW T [place] 60 degrees BEYOND NOW 06/27/2023 6:11 PM G[employer] OPERATOR 06/29/2023 7:07 AM G[employer] DIST[employer]ION PLANT OPERATOR Jayna Miles MD EKG ORD BEYOND NOW [place], [place] * CVL CORONARY ANGIOGRAM POSS PCI (06/27/2023 2:55 PM G[employer] DIST[employer]ION [employer] OPERATOR) Anatomical Region Laterality Modality X-Ray Angiograph y, X-Ray Angiography 06/27/2023 2:55 PM G[employer] DIST[employer]ION PLANT OPERATOR Narrative Transcriptions Jacek Shirley MD - 06/27/2023 4:27 PM CST 055 [email or web address] [facility] Cardiac Catheterization Report Name: KISHORE CORBIN Event Date: 06/27/2023 14:55 Excellian ID #: [id number] AMINA #: [id number] Diagnostic Physician: JACEK SHIRLEY [facility] Referring Physician: PCP Franki Daley MD Date: 1945 Gender: Male Age: 77 Summary/Conclusions PRESENTATION / INDICATIONS * Stress Test High risk/extent of ischemia * Coronary artery disease High risk abnormal stress test VASCULAR ACCESS * Using ultrasound guidance and a percutaneous technique, the right commonfemoral artery was accessed. Ultrasound was used to confirm vesselpatency, localizing needle into the lumen of the vessel. An image wassaved for the medical record. SPECIAL PROCEDURES * Right femoral arteriotomy was successfully closed utilizing a closuredevice DIAGNOSTIC SUMMARY The right common femoral artery is patent. ? The LMCA has mild disease.. ? 100% stenosis in the Proximal LAD ? 100% stenosis in the 1st Diagonal ? 100% stenosis in the Mid Circumflex ? 100% stenosis in the Ramus ? The RCA is dominant. ? 100% stenosis in the Mid RCA ? The VANCE graft from the VANCE to the Mid LAD is patent. ? The SVG graft from the Aorta to the 1st Diagonal is patent. ? 20% stenosis in the Aorta graft to 1st Diagonal ? The Sequential SVG graft from the Aorta to the Ramus and 2nd Marginal ispatent. LEFT VENTRICULAR FUNCTION ? LV Pressure = 122/4. Patient had vasovagal episode at end of procedure treated with atropine,jacob and IV fluids. Medical therapy for coronary artery disease. Observe overnight. Consent & Denver Protocol The risks, benefits, and alternatives of the procedure were discussed withthe patient and written informed consent was obtained. [place] protocol was followed. TIME OUT conducted just prior tostarting procedure confirmed patient identity, site/side, procedure,patient position, and availability of correct equipment and implants (ifapplicable). Staff Name Title JACEK SHIRLEY Diagnostic Environmental Health Technologist Petrona Willis RN Nurse Jd, Jayna Palmer Fellow Jorge Najera CVT Scrub Shanna Jeter CVT Scrub Behzad Longo CVT Monitor Gallo Honeycutt(R) Monitor Procedures ? Ultrasound Guided Vascular Access ? Coronary Angiogram ? Left Heart Cath No Ventriculogram ? Subclavian Arteriogram to visualize FANNY ? Saphenous Vein Graft Angio ? Femoral Closure Device ? Femoral Angio for Possible Closure Device ? Internal Mammary Angiogram Diagnostic Findings * Left Main Coronary Artery ? The LMCA has mild disease.. * Left Anterior Descending ? 100% stenosis in the Proximal LAD. ? 100% stenosis in the 1st Diagonal. * Circumflex ? 100% stenosis in the Mid Circumflex. * Ramus ? 100% stenosis in the Ramus. * Right Coronary Artery ? The RCA is dominant. ? 100% stenosis in the Mid RCA. * Coronary Artery Bypass Grafts ? The VANCE graft to the Mid LAD is patent. ? The SVG graft to the 1st Diagonal is patent. ? The SVG graft to the Ramus and 2nd Marginal is patent. ? 20% stenosis in the Aorta graft to 1st Diagonal. Lesion Information Lesion # Vessel Segment Lesion Length Lesion Details Aorta graft to 1st Diagonal Mid Circumflex Proximal LAD Mid RCA Ramus 1st Diagonal Hemodynamics State: Baseline Pressures (mmHg) Site Systolic Diastolic End Diastolic A Wave V Wave Mean AO 122 50 81 LV 122 -13 4 LV 124 -14 6 AO 120 47 75 Procedure Details Estimated Blood Loss: < 30 ml Specimen Collected: None Level of Sedation Achieved: Moderate Procedure Start: 14:55 Procedure End: 16:04 Procedure Time: 69 min Fluoroscopy Time: 15.8 min Cumulative Air Kerma: 529 mGy DAP: 3715 uGy/M2 Contrast: Omnipaque (low-osmolar), 85 ml Physiologic Data Actual VO2: 230.65 Weight: 72.1 kg BSA: 1.87 m2 Vascular Access Time Access Sheath Size 14:59 Right Femoral Artery, sheath inserted Complications ? No Complications Medications Ordered and Administered Start Time Stop Time Medication Dose Units Route Ordered By Given By 14:52 Fentanyl 75 mcg IV Fern, Petrona Shearer RN 14:52 Versed 1.5 mg IV Jacek Shirley Leesa RN 14:57 1% Lidocaine 8 ml Subcut Jacek Shirley Muhammad Saad 15:28 Versed 0.5 mg IV Jacek Shirley Leesa RN 15:29 Fentanyl 25 mcg IV [place], Petrona Shearer RN 15:47 Lidocaine 1% w/Epi 1:100,000 5 ml Subcut Jacek Shirley Muhammad Saad 15:53 Atropine 0.6 mg IV PoulJacek galloway Leesa RN 15:54 Neosynephrine (Phenylephrine) 200 mcg IV Fern, Petrona Shearer RN 15:54 NS 0.9 400 ml IV Jacek Shirley Leesa RN 15:55 Zofran (Ondansetron) 4 mg IV Fern, Petrona Shearer RN I personally monitored the patient?s conscious sedation during theprocedure. Conscious sedation starts with the first sedation medication dose ofFentanyl or Versed and ends when the procedure is completed, the patientis stable for recovery status, and the physician or other qualified healthcare professional providing the sedation ends personal [id number] time with the patient. The medications listed above were verbally ordered by me and read back tome as documented above. Refer to the procedure log report for additional case details. electronically signed on 06/27/2023 4:27:25 PM with status of Final Jacek Shirley MD [facility] [address] [place] [id number] (p) [phone](f) Miguel Church MD CV IMAGING * STRESS TEST ONLY PHARMACOLOGICAL W/O IMAGING (06/06/2023 12:02 PM G[employer] DIST[employer]ION [employer]ANT OPERATOR) Kenna Uriostegui - 06/06/2023 12:03 PM G[employer] DIST[employer]ANT OPERATOR The result for this exam is either scanned and attached to this order or are included in the ordering provider's NOTES from the patient's Office Visit or Surgical procedure from this date. Miguel Church MD STRESS * PET CT CARDIAC PERFUSION MULTIPLE REST AND STRESS (06/06/2023 12:01 PM G[employer] DIST[employer]ION PLANT OPERATOR) Anatomical Region Laterality Modality Positron Emissio n Tomography (PET) 06/06/2023 11:5 7 AM GAS DISTRI[employer]ION PLANT OPERATOR Narrative 06/06/2023 12:44 PM G[employer] DISTRI[employer]ION PLANT OPERATOR [address] [place] [address] [employer] ?PET CT MYOCARDIAL PERFUSION IMAGING REPORT REST/STRESS GATED PET IMAGING USING CT ATTENUATION CORRECTION. Patient Name: ?? KISHORE CORBIN ?Gender: ? M ? Height: ? 152 in Accession #: ?[id number] ?Weight: ? 69 lb Study Date: ? 06/06/2023 11:57:14 AM BSA: ?2.33 m? ? ? : ?1945 77 years ?BMI: ?2.10 kg/m? ? ? Ord. Prov.: ? MIGUEL CHURCH ?? Monitoring Prov.: Performing Site ANW Clinical History: ? Chest pain. Known coronary artery disease. Cardiac Risk Factors: Hypertension, hypercholesterolemia and diabetes mellitus. Cardiac History: ?CAB 2008. Beta keith/calcium channel keith/nitrate taken today: Yes. Caffeine/methylxanthine taken within 12 hrs: ?No. Chest pain/discomfort at baseline: ?No. IMPRESSION 1. Myocardial perfusion was abnormal. There was a large area of severe ischemia in the basal, mid, and apical inferior wall. Additionally, there was a medium to large-sized area of moderate to severe ischemia in the basal and mid septal wall. 2. Overall left ventricular systolic function was abnormal with moderate regional hypokinesis of the basal, mid, and apical inferior wall. And there was moderate regional hypokinesis of the basal and mid septal wall. The stress LVEF was calculated to be 65 %. 3. Left ventricular cavity size was normal (resting EDV 70 ml). There is evidence of TID of 1.3. 4. The pharmacologic stress ECG was negative for ischemia. 5. Stress myocardial blood flow was abnormal at 1.6 ml/min/g and myocardial flow reserve was abnormal at 1.4. 6. There were no prior studies available for comparison. REGADENOSON PET CT MPI PROCEDURE The patient was studied utilizing a same day rest/stress protocol. Gated PET myocardial perfusion imaging was performed at rest, immediately following the intravenous injection of 20.04 mCi of 82 Rubidium. 30 seconds after the 15 second IV regadenoson injection, the patient was injected via IV with 20.05 mCi of 82 Rubidium and gated stress myocardial perfusion imaging was immediately performed. Gated rest & stress tomographic imaging was performed with CT attenuation correction. (CT imaging not of diagnostic quality and is performed for attenuation correction only.) After image acquisition was completed, data was reconstructed in short, horizontal long and vertical long axis views and tomographic slices were generated. - Pharmacologic stress testing was performed with an IV regadenoson dose of 0.4 mg. - Resting heart rate was 87 bpm, peak heart rate was 99 bpm. - Resting blood pressure was 119/55 mmHg; peak blood pressure was 92/38 mmHg. - The patient developed symptoms which included shortness of breath, headache and chest discomfort. FINDINGS Baseline ECG - The baseline ECG was normal with sinus rhythm and normal conduction. - There were no repolarization abnormalities. - There was no atrial or ventricular ectopy. Stress ECG - The pharmacologic stress ECG was negative for ischemia. - There were no stress induced arrhythmias. - Repolarization was unchanged from baseline. Imaging - The overall quality of the study was excellent with no significant patient motion or artifacts. - PET images demonstrated a large reversible perfusion abnormality of severe intensity in the basal, mid, and apical inferior wall consistent with ischemia. Additionally, there was a medium to large-sized reversible perfusion abnormality of moderate to severe intensity in the basal and mid septal wall consistent with ischemia. - No other fixed or reversible perfusion defects were identified. - Computer processed gated imaging revealed normal left ventricular size with a resting EDV of 70 ml, ESV of 22 ml and calculated LVEF of 69 % at rest, decreasing to 65 % during stress. TID ratio of 1.31. (Lab normals: LVEF >50%, LV Size <150 ml). - Gated PET imaging demonstrated moderate regional hypokinesis of the basal, mid, and apical inferior wall. And there was moderate regional hypokinesis of the basal and mid septal wall. - No other wall motion abnormalities were identified. - Stress myocardial blood flow was abnormal at 1.6 ml/min/g and myocardial flow reserve was abnormal at 1.4. - No right ventricular abnormalities were identified. - There was no evidence of abnormal lung or extracardiac activity (CT imaging not of diagnostic quality and is performed for attenuation correction only.). - Risk/extent of ischemia per ACC Noninvasive Risk Stratification Guideline: HIGH RISK. This study was interpreted and electronically signed by Sd Acosta MD on 06/06/2023 12:44:07 PM. A preliminary report was given to Dr. Church by Dr. Karla Lael at 12:30 on June 06, 2023. Performed by an [facility] Nuclear/PET Accredited Facility ??Final (Updated) ?? Procedure Note Sd Ballard MD - 06/06/2023 [address] [place] [address] MYOCARDIAL PERFUSION IMAGING REPORT REST/STRESS GATED PET IMAGING USING CT ATTENUATION CORRECTION. Patient Name: KISHORE CORBIN Gender: M Height: 152 in Weight: 69 lb Study Date: 06/06/2023 11:57:14 AM BSA: 2.33 m? ? ? : 1945 77 years BMI: 2.10 kg/m? ? ? Ord. Prov.: MIGUEL CHURCH Monitoring Prov.: Performing Site ANW Clinical History: Chest pain. Known coronary artery disease. Cardiac Risk Factors: Hypertension, hypercholesterolemia and diabetesmellitus. Cardiac History: CAB 2007. Beta keith/calcium channel keith/nitrate taken today: Yes. Caffeine/methylxanthine taken within 12 hrs: No. Chest pain/discomfort at baseline: No. IMPRESSION 1. Myocardial perfusion was abnormal. There was a large area of severeischemia in the basal, mid, and apical inferior wall. Additionally, therewas a medium to large- sized area of moderate to severe ischemia in thebasal and mid septal wall. 2. Overall left ventricular systolic function was abnormal with moderateregional hypokinesis of the basal, mid, and apical inferior wall. Andthere was moderate regional hypokinesis of the basal and mid septal wall.The stress LVEF was calculated to be 65 %. 3. Left ventricular cavity size was normal (resting EDV 70 ml). There isevidence of TID of 1.3. 4. The pharmacologic stress ECG was negative for ischemia. 5. Stress myocardial blood flow was abnormal at 1.6 ml/min/g andmyocardial flow reserve was abnormal at 1.4. 6. There were no prior studies available for comparison. REGADENOSON PET CT MPI PROCEDURE The patient was studied utilizing a same day rest/stress protocol. GatedPET myocardial perfusion imaging was performed at rest, immediatelyfollowing the intravenous injection of 20.04 mCi of 82 Rubidium. 30seconds after the 15 second IV regadenoson injection, the patient wasinjected via IV with 20.05 mCi of 82 Rubidium and gated stress myocardialperfusion imaging was immediately performed. Gated rest & stresstomographic imaging was performed with CT attenuation correction. (CTimaging not of diagnostic quality and is performed for attenuationcorrection only.) After image acquisition was completed, data wasreconstructed in short, horizontal long and vertical long axis views andtomographic slices were generated. - Pharmacologic stress testing was performed with an IV regadenoson doseof 0.4 mg. - Resting heart rate was 87 bpm, peak heart rate was 99 bpm. - Resting blood pressure was 119/55 mmHg; peak blood pressure was 92/38mmHg. - The patient developed symptoms which included shortness of breath,headache and chest discomfort. FINDINGS Baseline ECG - The baseline ECG was normal with sinus rhythm and normal conduction. - There were no repolarization abnormalities. - There was no atrial or ventricular ectopy. Stress ECG - The pharmacologic stress ECG was negative for ischemia. - There were no stress induced arrhythmias. - Repolarization was unchanged from baseline. Imaging - The overall quality of the study was excellent with no significantpatient motion or artifacts. - PET images demonstrated a large reversible perfusion abnormality ofsevere intensity in the basal, mid, and apical inferior wall consistent withischemia. Additionally, there was a medium to large-sized reversible perfusionabnormality of moderate to severe intensity in the basal and mid septal wallconsistent with ischemia. - No other fixed or reversible perfusion defects were identified. - Computer processed gated imaging revealed normal left ventricular sizewith a resting EDV of 70 ml, ESV of 22 ml and calculated LVEF of 69 % at rest, decreasing to 65 % during stress. TID ratio of 1.31. (Lab normals: LVEF>50%, LV Size <150 ml). - Gated PET imaging demonstrated moderate regional hypokinesis of thebasal, mid, and apical inferior wall. And there was moderate regional hypokinesisof the basal and mid septal wall. - No other wall motion abnormalities were identified. - Stress myocardial blood flow was abnormal at 1.6 ml/min/g and myocardialflow reserve was abnormal at 1.4. - No right ventricular abnormalities were identified. - There was no evidence of abnormal lung or extracardiac activity (CTimaging not of diagnostic quality and is performed for attenuation correctiononly.). - Risk/extent of ischemia per ACC Noninvasive Risk StratificationGuideline: HIGH RISK. This study was interpreted and electronically signed by Wade Weiss 06/06/2023 12:44:07 PM. A preliminary report was given to Dr. Church by Dr. Karla Leal at12:30 on June 06, 2023. Performed by an [facility] Nuclear/PET Accredited Facility Final (Updated) Miguel Church MD PET * IRON PLUS IRON BINDING CAP (05/11/2023 2:09 PM GAS DISTRIBUTION PLANT OPERATOR) IRON 73 61 - 157 ug/dL 05/11/2023 9:32 PM GAS DISTRIBUTION PLANT OPERATOR [facility] UIBC (UNSATURATED) 244 112 - 347 ug/dL 05/11/2023 9:32 PM GAS DISTRIBUTION PLANT OPERATOR [facility] IRON BINDING CAPACITY 317 250 - 400 ug/dL 05/11/2023 9:32 PM GAS DISTRIBUTION PLANT OPERATOR [facility] IRON,% SATURATION 23 14 - 50 % 05/11/2023 9:32 PM GAS DISTRIBUTION PLANT OPERATOR [facility] Blood BLOOD SPECIMEN / Unknown Venipuncture / Unknown 05/11/2023 2:09 PM GAS DISTRIBUTION PLANT OPERATOR 05/11/2023 2:10 PM GAS DISTRIBUTION PLANT OPERATOR Franki Daley MD CHEMISTRY Performing Organization Address [facility] de Phone Number [facility] [address] [place] [address], * FOLIC ACID (05/11/2023 2:09 PM GAS DISTRIBUTION PLANT OPERATOR) FOLIC ACID 32.7 4.6 - 34.8 ng/mL 05/11/2023 10:02 PM GAS DISTRIBUTION PLANT OPERATOR [facility] Blood BLOOD SPECIMEN / Unknown Venipuncture / Unknown 05/11/2023 2:09 PM GAS DISTRIBUTION PLANT OPERATOR 05/11/2023 2:10 PM GAS DISTRIBUTION PLANT OPERATOR Narrative [facility] - 05/11/2023 10:02 PM GAS DISTRIBUTION PLANT OPERATOR Biotin supplements may cause clinically significant interference for this test assay. ??If interference is suspected, it is strongly recommended that biotin is discontinued for at least one week prior to retesting. Franki Daley MD CHEMISTRY Performing Organization Address [facility] Co de Phone Number [facility] [address] [place] [address], * FERRITIN (05/11/2023 2:09 PM GAS DISTRIBUTION PLANT OPERATOR) FERRITIN 293.0 30.0 - 400.0 ng/mL 05/11/2023 9:32 PM GAS DISTRIBUTION PLANT OPERATOR [facility] Blood BLOOD SPECIMEN / Unknown Venipuncture / Unknown 05/11/2023 2:09 PM GAS DISTRIBUTION PLANT OPERATOR 05/11/2023 2:10 PM GAS DISTRIBUTION PLANT OPERATOR Franki Daley MD CHEMISTRY Performing Organization Address [facility]/ZIP Co de Phone Number [facility] [address] [place] [id number], [place] * VITAMIN B12 (05/11/2023 2:09 PM GAS DISTRIBUTION PLANT OPERATOR) VITAMIN B12 779 232 - 1,245 pg/mL 05/11/2023 9:32 PM GAS DISTRIBUTION PLANT OPERATOR [facility] Blood BLOOD SPECIMEN / Unknown Venipuncture / Unknown 05/11/2023 2:09 PM GAS DISTRIBUTION PLANT OPERATOR 05/11/2023 2:10 PM GAS DISTRIBUTION PLANT OPERATOR Narrative [facility] - 05/11/2023 9:32 PM GAS DISTRIBUTION PLANT OPERATOR Biotin supplements may cause clinically significant interference for this test assay. ??If interference is suspected, it is strongly recommended that biotin is discontinued for at least one week prior to retesting. Franki Daley MD CHEMISTRY Performing Organization Address [facility] Co de Phone Number [facility] [address] [address], * (ABNORMAL) TROPONIN T (HS) ONE TIME (05/04/2023 11:28 AM GAS DISTRIBUTION PLANT OPERATOR) Pathologist [facility] TROPONIN T HS 42(H) 6-15 ng/L ng/L 05/04/2023 12:17 PM GAS DISTRIBUTION PLANT OPERATOR [facility] Blood BLOOD SPECIMEN / Unknown Venipuncture / Unknown 05/04/2023 11:28 AM GAS DISTRIBUTION PLANT OPERATOR 05/04/2023 11:32 AM GAS DISTRIBUTION PLANT OPERATOR Ti Kee MD CHEMISTRY Performing Organization Address City/[facility]/ZIP Co de Phone Number [facility] [address] [place] [address] * XR CHEST 2 VIEWS PA AND LATERAL (05/04/2023 9:33 AM GAS DISTRIBUTION PLANT OPERATOR) Anatomical Region Laterality Modality CHEST, THORAX, Lung, HEART Digit al Radiography 05/04/2023 9:40 AM GAS DISTRIBUTION PLANT OPERATOR Impressions 05/04/2023 9:40 AM GAS DISTRIBUTION PLANT OPERATOR Lungs are clear. No acute findings. Dictated by Smiley Rodriguez MD @ 05/04/2023 9:40:07 AM (Electronically Signed) Narrative 05/04/2023 9:40 AM GAS DISTRIBUTION PLANT OPERATOR For Patients: ??As a result of the Cures Act, medical imaging exams and procedure reports are released immediately into your electronic medical record. ??You may view this report before your referring provider. ??If you have questions, please contact your health care provider. INDICATION: Short of breath COMPARISON: 03/02/2008 TECHNIQUE: PA and lateral 2 view chest radiograph. FINDINGS: The lungs are well expanded. No focal consolidations. No pulmonary edema. No pleural effusion. No pneumothorax. No pneumomediastinum. Normal cardiomediastinal silhouette. Atherosclerotic calcifications. Mediastinal surgical clips and median sternotomy wires. Bones: Normal for age. Procedure Note Smiley Rodriguez MD - 05/04/2023 For Patients: As a result of the Cures Act, medical imagingexams and procedure reports are released immediately into your electronicmedical record. You may view this report before your referring provider.If you have questions, please contact your health care provider. INDICATION: Short of breath COMPARISON: 03/02/2008 TECHNIQUE: PA and lateral 2 view chest radiograph. FINDINGS: The lungs are well expanded. No focal consolidations. No pulmonary edema.No pleural effusion. No pneumothorax. No pneumomediastinum. Normal cardiomediastinal silhouette. Atherosclerotic calcifications.Mediastinal surgical clips and median sternotomy wires. Bones: Normal for age. IMPRESSION: Lungs are clear. No acute findings. Dictated by Smiley Rodriguez MD @ 05/04/2023 9:40:07 AM (Electronically Signed) Ti Kee MD GENERAL IMAGING * (ABNORMAL) TROPONIN T (HS) ACUTE W/2HR REFLEX (05/04/2023 9:16 AM GAS DISTRIBUTION PLANT OPERATOR) TROPONIN T HS 43(H) 6-15 ng/L ng/L 05/04/2023 9:46 AM GAS DISTRIBUTION PLANT OPERATOR [facility] Blood BLOOD SPECIMEN / Unknown Venipuncture / Unknown 05/04/2023 9:16 AM GAS DISTRIBUTION PLANT OPERATOR 05/04/2023 9:21 AM GAS DISTRIBUTION PLANT OPERATOR Narrative [facility] - 05/04/2023 9:46 AM GAS DISTRIBUTION PLANT OPERATOR hs-cTnT (Elecsys Troponin T Gen 5) concentration (s) above the sex-specific 99th percentile (16 ng/L or greater for males or 11 ng/L or greater for females) are indicative of myocardial injury. If initial hs-cTnT <=100 ng/L at presentation, a 0h/2h ABSOLUTE (ng/L) delta change (rising or falling) of >=10 ng/L suggests a significant change, whereas a 0h/2h delta change <=3 ng/L suggests no significant change. If initial hs-cTnT >100 ng/L at presentation, a 0h/2h/ RELATIVE (percent, %) delta change of 20% is suggested to distinguish patients with acute vs. chronic myocardial injury. There are multiple etiologies that can cause hs-cTnT increases above the 99th percentile (myocardial injury) other than acute myocardial infarction. Clinical context and careful clinical evaluation are critical for diagnosis and risk-stratification. The diagnosis of acute myocardial infarction requires a rising and/or falling pattern in hs-cTnT concentrations with at least one value above the sex-specific 99th percentile PLUS at least one of the following clinical criteria: ischemic symptoms, new or presumed new significant ST-T wave changes or new LBBB, development of pathological Q waves, imaging evidence of new loss of viable myocardium or new regional wall motion abnormality, or identification of intracoronary atherothrombosis or an acute angiographic culprit on coronary angiography. In appropriate low-risk patients with a non-ischemic electrocardiogram without active chest pain with a symptom onset >3-hours without recurrence, a single initial hs-cTnT<6 ng/L identifies patient with a very low risk in emergency department patient population. Ti Kee MD CHEMISTRY [facility] [address] [place] [address] * PRO-BNP (05/04/2023 9:16 AM GAS DIST[employer]ION PLANT OPERATOR) [facility] Signature PRO-BNP 251 <450 pg/mL 05/04/2023 9:52 AM GAS DISTRI[employer]ION PLANT OPERATOR [facility] Blood BLOOD SPECIMEN / Unknown Venipuncture / Unknown 05/04/2023 9:16 AM GAS DISTRI[employer]ION PLANT OPERATOR 05/04/2023 9:21 AM GAS DISTRIBUTION PLANT OPERATOR [facility] - 05/04/2023 9:52 AM GAS DISTRI[employer]ION PLANT OPERATOR The following cut-points have been suggested for the use of proBNP for the diagnostic evaluation of heart failure (HF) in patient with acute dyspnea. Patients with eGFR >= 60 Diagnosis (rule in CHF) ? <50 Years Old ?450 pg/mL 50 - 75 Years Old ?900 pg/mL >75 Years Old ? 1800 pg/mL Exclusion (rule out CHF) Age Independent ?300 pg/mL A cutoff of 1200 pg/mL for patients with an eGFR <60 yields a diagnostic sensitivity of 89% and specificity of 72% for acute congestive heart failure. ? Ti Kee MD SEND OUTS [facility] [address] [place] [address] from Last 3 Months Advance Directives Documents on File Type Date Recorded Patient Tool Specialist Expl anation Healthcare Directive 03/21/2023 023 Healthcare Directive 06/25/2018 3:07 PM 09/2017 Healthcare Directive 03/04/2008 Latest Code Status on File Code Status Date Activated Date Inactivated Comments Full Code 06/28/2023 7:47 AM 06/28/2023 1:42 PM Question Answer Comments Code Status Discussion: Reviewed Preferences Code Status History Code Status Date Activated Date Inactivated Comments Full Code 06/27/2023 4:07 PM 06/28/2023 7:47 AM Question Answer Comments Code Status Discussion: Unable to Assess Preferences, Provider to review later Full Code 11/22/2015 9:15 AM 11/22/2015 7:36 PM Full Code 02/27/2008 4:23 PM 03/03/2008 5:39 PM Full Code 02/27/2008 10:40 AM 02/27/2008 4:23 PM Care Teams Fruit Farmworker Relationship Specialty Start Date End Date Franki Daley MD [address] [place] [address] PCP - General Family Practice 08/04/11 Archie Hung MD [address] [place] [address] Consulting Physician Sports Medicine - Family Medicine 06/14/20
--- OUTSIDE RECORDS SUMMARY | 2023-07-13 15:20 | XMS_ITS | Encounter Summary ---
Author Name Unknown Organization [facility] Address [address] [place] [address] Care Team Providers Care Road Boss Name Role Phone Unavailable Primary Care Provider Unavailabl e Reason for Referral * Outpatient (Routine) - Authorized Specialty Diagnoses / Procedures Referred By Contac t Referred To Contact Diagnoses Primary Malignant Neoplasm Of Prostate (HCC) Procedures Enema Prep Elijah Cedeno M.D. [address] [place] [address] [facility] Referral ID Status Reason Start Date Expiration Date V isits Requested Visits Authorized [id number] Authorized 04/23/2023 04/22/2024 1 1 R INSPECTOR Encounter Details Date Type Department Care Team (Late st Contact Info) Description 04/23/2023 Orders Only Department of Radiation Oncology in [place], [place] [address] [place] [phone] Elijah Cedeno M.D. [address] [place] [phone] Primary Malignant Neoplasm Of Prostate (HCC) (Primary [...] your living situation today? I have a [facility] place to live 03/15/2023 Sex and Gender Information Value Date Recorded Sex Assigned at Male 03/15/2023 12:48 PM CDT Gender Identity Male 03/15/2023 12:48 PM CDT Sexual Orientation Straight 03/15/2023 12 :48 PM CDT documented as of this encounter Plan of Treatment Upcoming Encounters Date Type Department Care Team (Late st Contact Info) Description 07/23/2023 7:00 AM PAPER INSPECTOR Appointment Department of Radiation Oncology in [place], [place] [address] [place] [address] [place] [address] Scheduled Orders Name Type Priority Associated Diagnoses Orde r Schedule Enema Prep Procedures Routine Primary Malignant Neoplasm Of Prostate (HCC) Expected: 06/25/2023, Expires: 07/24/2024 documented as of this encounter Visit Diagnoses Diagnosis Primary Malignant Neoplasm Of Prostate (HCC)- Primary documented in this encounter
--- OUTSIDE RECORDS SUMMARY | 2023-07-13 15:20 | XMS_ITS | Encounter Summary ---
Author Name Unknown Organization [facility] Address [address] [place] [address] Care Team Providers Care Depositing Machine Operator Name Role Phone Unavailable Primary Care Provider Unavailabl e Encounter Details Date Type Department Care Team (Late st Contact Info) Description 04/24/2023 Clinical Communication Department of Radiation Oncology in [place], [place] [address] [place] [phone] Elijah Cedeno M.D. [address] [place] [address] Social History Tobacco Use Types Packs/Day Years [...] your living situation today? I have a [facility] place to live 03/15/2023 Sex and Gender Information Value Date Recorded Sex Assigned at Male 03/15/2023 12:48 PM CDT Gender Identity Male 03/15/2023 12:48 PM CDT Sexual Orientation Straight 03/15/2023 12 :48 PM CDT documented as of this encounter Miscellaneous Notes * Telephone Encounter - Ana Agudelo R.N. - 04/24/2023 1:12 PM FIRE TECHNICIAN ASSESSMENT Patient reports that he was started on Flomax 0.4mg for urinary symptoms. Ever since he started themedication he reports that he has had orthostatic dizziness and hasn't felt well on it. He also reports at times it makes him feel like he is having a hypoglycemic episode. These side effects haven't gotten worse but have continued to persist despite trying to take the medication at different times of the day. He verbalizes that he has been trying to push through it but he feels like he can no longer tolerate these side effects. He has trialed stopping it for a couple days and he does feel noticeably better. He reports that he notes a mild improvement to urinary symptoms while on Flomax. Heis wondering if there is another medication that he can try. PLAN Advised patient to hold the medication for now if it causing dizziness and making him feel unwell. I will review symptoms with the care team and contact the patient with a plan going forward. Patientreports that he is at work so he would prefer to be contacted via the portal. Disposition/Recommendation: notified provider and awaiting recommendations. Information/Education: patient/caller able to teach back. Caller agreeable to plan of care: yes. The following references were used: nursing clinical judgement. TECHNICIAN * Telephone Encounter - Nellie Vasquez - 04/24/2023 10:43 AM CST Patient called to report that he is having difficulty taking his prescribed Flomax. He states that he is having dizzy spells and ' blood sugar crashes '. He said that he stopped taking the medicationfor 2 days and began to feel better but then when he started taking it again he felt dizzy. Patientwould like someone from his care to reach out to him to talk about other options or what can be changed. TECHNICIAN documented in this encounter Plan of Treatment Upcoming Encounters Date Type Department Care Team (Late st Contact Info) Description 07/23/2023 7:00 AM FIRE TECHNICIAN Appointment Department of Radiation Oncology in [place], [place] [address] [place] [address] Elijah Cedeno M.D. [address] [place] [address] documented as of this encounter Visit Diagnoses Not on filedocumented in this encounter
--- OUTSIDE RECORDS SUMMARY | 2023-07-13 15:20 | XMS_ITS | Encounter Summary ---
Author Name Unknown Organization [facility] Address [address] [place] [address] Care Team Providers Care Scale Clerk Name Role Phone Unavailable Primary Care Provider Unavailabl e Encounter Details Date Type Department Care Team (Late st Contact Info) Description 03/02/2023 Clinical Communication Department of Radiation Oncology in [place], [place] [address] [place] [phone] Elijah Cedeno M.D. [address] [place] [address] Social History Tobacco Use Types Packs/Day Years Used Date Smoking Tobacco: Former Cigarettes 3 Q uit: 1985 Smokeless Tobacco: Never Alcohol Use Standard Drinks/Week Comments Not Currently 0 (1 standard drink = 0.6 oz pur e alcohol) Nutrition Answer Date Recorded Nutrition: EVOO Fat Source Unknown 02/06 Nutrition: Servings of Fruits/Vegetables per Day Not on file 02/06/2023 Dental Answer Date Recorded Dental: Regular Dentist Unknown 02/07/20 23 Sex and Gender Information Value Date Recorded Sex Assigned at Male 03/15/2023 12:48 PM CDT Gender Identity Male 03/15/2023 12:48 PM CDT Sexual Orientation Straight 03/15/2023 12 :48 PM CDT documented as of this encounter Miscellaneous Notes * Telephone Encounter - Lena Caldwell R.N. - 03/02/2023 1:42 PM CDT Portal message sent as phone call did not go through. * Telephone Encounter - Bari Vasquezerin Mann - 03/02/2023 11:59 AM CDT Other Reason for Call Caller: Kishore Corbin Relationships to patient: Self Reason for call: Patient called asking for clarification on whether he should be taking a calcium supplement or not as he has been told different things by different providers. Patient was told that message would be sent to his care team and to expect a call back with clarification. documented in this encounter Plan of Treatment Upcoming Encounters Date Type Department Care Team (Late st Contact Info) Description 07/23/2023 7:00 AM CONTRACTING SPECIALIST Appointment Department of Radiation Oncology in [address] [phone] Elijah Cedeno M.D. [address] [place] [address] documented as of this encounter Visit Diagnoses Not on filedocumented in this encounter
--- OUTSIDE RECORDS SUMMARY | 2023-07-13 15:20 | XMS_ITS | Encounter Summary ---
Author Name Unknown Organization [facility] Address [address] [place] [address] Care Team Providers Care Toll Mechanic Name Role Phone Unavailable Primary Care Provider Unavailabl e Reason for Referral * Outpatient (Routine) - Closed Specialty Diagnoses / Procedures Referred By Jake henry Referred To Contact Radiation Oncology Elijah Cedeno M.D. [address] [place] [address] [facility] Region Referral ID Status Reason Start Date Expiration Date Visits Re quested Visits Authorized [id number] Closed 02/22/2023 02/21/2026 1 1 Reason for Visit * Appointment Request (Routine) - Closed Specialty Diagnoses / Procedures Referred By Jake henry Referred To Contact Radiation Oncology Diagnoses Primary Malignant Neoplasm Of Prostate (HCC) Fritz Juarez M.D. [address] [place] [phone] Referral ID Status Reason Start Date Expiration Date Visits Re quested Visits Authorized [id number] Closed 02/06/2023 02/06/2024 1 1 Encounter Details Date Type Department Care Team (Latest Contact Info) Description 02/22/2023 8:48 AM CDT - 02/22/2023 5:27 PM CDT Hospital Encounter Department of Radiation Oncology in [place], [place] [address] [place] [phone] Elijah Cedeno M.D. [address] [place] [address] Primary Malignant Neoplasm Of Prostate (HCC) (Primary [...] Date Recorded Dental: Regular Dentist Unknown 02/07/20 Sex and Gender Information Value Date Recorded Sex Assigned at Male 03/15/2023 12:48 PM CDT Gender Identity Male 03/15/2023 12:48 PM CDT Sexual Orientation Straight 03/15/2023 12 :48 PM CDT documented as of this encounter Last Filed Vital Signs Vital Sign Reading Time Taken Comments Blood Pressure 155/62 02/22/2023 8:51 AM CDT Pulse 95 02/22/2023 8:51 AM CDT Temperature 36.3 ??C (97.4 ??F) 02/22/2023 8:51 AM CD T Respiratory Rate - - Oxygen Saturation - - Inhaled Oxygen Concentration - - Weight 71.3 kg (157 lb 3 oz) 02/22/2023 8:51 AM CDT Height - - Body Mass [...] (NITROSTAT) 0.4 mg SL tablet 0 03/22/2022 rosuvastatin (CRESTOR) 5 mg tablet Take 1 tablet by mouth at bedtime. 0 06/13/2022 omega 1-qnk-naz-fish oil (fish oil) 1,000 mg (120 mg-180 mg) capsule Take 4 capsules by mouth daily. 0 08/10/2011 tamsulosin (FLOMAX) 0.4 mg 24 hr capsule Take 1 capsule (0.4 mg total) by mouth daily. 30 capsule 3 02/22/2023 amLODIPine (NORVASC) 5 mg tablet TAKE 1/2 TABLET BY MOUTH EVERY DAY -- DOSE CHANGE 0 03/22/2022 03/23/2023 bicalutamide (CASODEX) 50 mg tablet Take 1 tablet by mouth daily. 0 02/05/2023 03/23/2023 documented as of this encounter Consult Notes * Elijah Cedeno M.D. - 02/22/2023 9:00 AM CDT SUBJECTIVE REQUESTING PROVIDER Fritz Juarez M.D. REASON FOR CONSULT 1. Primary Malignant Neoplasm Of Prostate (HCC) HISTORY OF PRESENT ILLNESS Mr. Kishore Corbin is a 77 y.o. male with stage IIB (cT2c, cN0, cM0, PSA: 16.8, Grade Group: 2), unfavorable intermediate risk, adenocarcinoma of the prostate. I am asked by Dr. Juarez to evaluate thepatient for radiotherapy. His oncologic history is as follows: Oncology [...] 09/16/2020: PSA 8.84 ng/mL 09/20/2020: Dr. Juarez gain recommended prostate biopsy but patient declined. JOSÉ MANUEL normal sphincter tone, 30 gm, 6 mm nodule (Right apex), [...] A. Left base-prostate -adenocarcinoma of the prostate -Gwynn score 3+4=7 -discontinuously involving 90% of the length of the core -perineural invasion present -PIN4 supports diagnosis B. Left mid-prostate -adenocarcinoma of the prostate -Gwynn score 3+4=7 -Involving 80-100% of the length of the cores -perineural invasion present C. Left apex-prostate -adenocarcinoma of the prostate -Gwynn score 3+4=7 -involving 80-90% of the length of the cores -perineural invasion not seen D. Right base-prostate -benign prostatic tissue E. Right mid-prostate -high-grade prostatic intraepithelial neoplasia, focal PIN4 supports diagnosis F. Right apex-prostate -adenocarcinoma of the prostate -Yesi score 3+4=7 -discontinuously involving 5-20% of the length of the cores -perineural invasion not seen -PIN4 supports diagnosis G. Lesion 1 -Adenocarcinoma of prostate -Gwynn score 3+4=7 -Discontinuously involving 75-90% of the length of the cores -perineural invasion not seen -PIN4 supports diagnosis / cores positive 01/30/[address] abdomen [...] ADT with 50 mg Casodex x4 weeks and Eligard injection with Dr. Juarez INTERVAL HISTORY The patient reports that he is currently feeling well. 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 He reports significant lower urinary tract symptoms including incomplete emptying, urinary frequency, urinary hesitancy, urinary urgency, urinary stream, and weakness of stream. He experiences occasionally urinary urge incontinence when he drinks too much caffeine. He does not wear a pad and tries to limit caffeine intake because of this. He did have some hematuria post prostate biopsy in December but that resolved. He reports nocturia x 2-3 if he does not limit fluid intake after 8:00 pm. If he does limit fluid intake after 8:00pm he reports nocturia x 0-1. He reports regular daily bowel movements. He denies hematochezia. Hedenies pain. Patient has been taking Casodex 50mg for the past 2-3 weeks and reports he has been experiencing intermittent dizziness and stomach upset. He does feel like he may have had a stomach virus this past weekend because he had cramps and diarrhea but that has resolved. He does have a history of coronary artery bypass grafting but has not had any recent angina. He has normal erections without the aid of phosphodiesterase inhibitors. The patient denies a history of prior radiation therapy, connective tissue disorders, or inflammatory bowel disease. The patient's ECOG performance status is 0. AUA SYMPTOM INDEX February 22, 2023: 32 (4, 5, 5, 5, 5, 5, 3) IIEF-5 February 22, 2023: Not reported. Not currently sexually active. REVIEW OF SYSTEMS Review of systems was negative except as documented above. 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 No other family history of prostate cancer. A maternal first cousin had lung cancer. OBJECTIVE BP 155/62 (BP Location: Right arm, Patient Position: Sitting, Cuff Size: Regular) Pulse 95 Temp36.3 ??C (Temporal) Wt 71.3 kg PHYSICAL EXAM General: Patient is awake, alert, and oriented to person, place, and time. No apparent distress. The patient is here today by himself. ENT: Pupils equal, round, and reactive to light. Sclera anicteric. Oral cavity inspection reveals moist mucous membranes and no visible lesions. Neck: Supple. Lymph: No palpable cervical, supraclavicular, infraclavicular, or axillary adenopathy. Spine: There is no tenderness to palpation of the spine. Lungs: Clear to auscultation bilaterally. Heart: Regular rate and rhythm. Normal S1 and S2. No murmurs. Abdomen: Soft, non-tender, non-distended. Normal active bowel sounds are present. Extremities: No edema. Rectal: Deferred. DIAGNOSTICS I reviewed the patient's pathology reports and imaging. ASSESSMENT / PLAN #1 Stage IIB (cT2c, cN0, cM0, PSA: 16.8, Grade Group: 2) adenocarcinoma of the prostate #2 Androgen deprivation therapy initiated on February 06, 2023 with bicalutamide 50 mg daily #3 Significant lower urinary tract symptoms I had a detailed discussion with the patient regarding the risks, benefits, and alternatives of radiotherapy in this setting. I consulted the NCCN guidelines in formulating my recommendations and reviewed these with him. The patient has already discussed prostatectomy with Dr. Juarez; hence, I focused my discussion on radiotherapy options. These include: 1. External beam radiotherapy alone to a dose of 60 Gy in 20 fractions or 70.2 Gy in 26 fractions utilizing IMRT; 2. A combination of external beam radiotherapy to a dose of 45 Gy in 25 fractions or 37.5 Gy in 15 fractions utilizing IMRT and 1 high dose rate prostate brachytherapy boost implant; 3. Stereotactic body radiation therapy to a dose of 36.25 to 40 Gy in 5 fractions. I discussed the logistics as well as the acute and chronic side effects associated with treatment in detail including acute side effects of urinary frequency and urgency, dysuria, bowel frequency andurgency, diarrhea, gaseous bloating and discomfort, radiation dermatitis, loss of pubic hair, and fatigue. Long-term side effects include common mild increase in urinary and bowel frequency, as well as more rare side effects including radiation cystitis (5% risk or less), radiation proctitis (5% orless risk), urethral stenoses requiring dilatation (1% risk or less), fistula formation (less than 1% risk), increasing arthritis of the hips, small bowel obstruction, and a very small risk of seconda ry malignancy. The patient is also likely to experience erectile dysfunction. Given his unfavorable-intermediate risk disease, I would recommend the addition of a short course (4 to 6 months) androgen deprivation therapy if I were to treat him with external beam therapy alone.He has already started ADT and is tolerating it somewhat poorly. This may be just a response to bicalutamide. I suggested that he stop bicalutamide. Next week he will begin tamsulosin 0.4 mg at bedtime. We discussed orthostatic precautions, and he verbalized understanding of such. Soon after we will initiate Firmagon with a loading dose of 240 mg. Given his significant lower urinary tract symptoms, I would consider at least 3 months of ADT prior to initiation of treatment to see if this is helpful with cytoreduction of the prostate. He is already taking calcium and vitamin-D. We discussed the side effects of androgen deprivation therapy, which include hot flashes, fatigue, bone loss with prolonged use, mood changes, gynecomastia, loss of muscle strength and power, and complete loss of erectile function until his testosterone levels normalize (which can take up to a yearafter ADT is discontinued), a low risk of cardiovascular events (5% or less), and a low increased risk of Alzheimer or other dementia (4-6%). We discussed the use of a Hydrogel spacer. He understands that it is required with stereotactic body radiation therapy but optional with standard hypofractionated treatment. We discussed the results of the ProtecT trial that randomized patients to surgery, radiotherapy, orobservation (Rich et al, [facility], 2016) that showed that surgery and radiotherapy were equally efficacious. We also discussed the fact that surgical salvage is typically not possible after any form of prostate radiotherapy. I also discussed the indications for adjuvant radiotherapy following prostatectomy as well as salvage radiotherapy in the setting of rising PSA. After this discussion, I provided the patient with a written summary of my recommendations. His questions were answered to his verbalized satisfaction. The patient verbally stated that he would like to proceed with treatment. He will have a Firmagon injection in the near future at [facility]. We will see him back 3 weeks later to check on his progress for his next injection. My thanks to Drs. Juarez, Perry, and Edi for the opportunity to participate in this patient'scare. EDUCATION Ready to learn, no apparent learning barriers were identified; learning preferences include listening. Explained diagnosis and treatment plan; patient expressed understanding of the content. I have spent 60 minutes caring for this patient including both xwjk-th-tosh and lsx-ksah-sy-face time. Signed by: Elijah Cedeno M.D. 02/22/2023 5:22 PM CDT Radiation Oncology [facility] [address] [place] [id number] documented in this encounter Miscellaneous Notes * Addendum Note - Ramya Buchanan, C.N.A. - 02/22/2023 9:00 AM CDTEncounter addended by: Ramya Buchanan C.NLea on: 02/23/2023 11:39 AM Actions taken: Letter saved documented in this encounter Plan of Treatment Upcoming Encounters Date Type Department Care Team (Late st Contact Info) Description 07/23/2023 7:00 AM ICU TECH Appointment Department of Radiation Oncology in [address] [phone] Elijah Cedeno M.D. [address] [place] [address] Scheduled Referrals Name Type Priority Associated Diagnoses Orde r Schedule Radiation Oncology office visit (clinic) Outpatient Referral Routine Expected: 03/22/2023 (Approximate), Expires: 02/23/2024 documented as of this encounter Visit Diagnoses Diagnosis Primary Malignant Neoplasm Of Prostate (HCC)- Primary documented in this encounter
--- OUTSIDE RECORDS SUMMARY | 2023-07-13 15:20 | XMS_ITS | Clinical Summary ---
Author Name Unknown Organization [facility] Address [address] [place] [address] Care Team Providers Care Vehicle Body Builder Name Role Phone Unavailable Primary Care Provider Unavailabl e Social History Tobacco Use Types Packs/Day Years Used Date Smoking Tobacco: Never Assessed Adolescent Education Answer Date Record ed Getting School Help Needed Not on file 03/10 Sex and Gender Information Value Date Recorded Sex Assigned at Not on file Gender Identity Not on file Sexual Orientation Not on file Plan of Treatment Health Maintenance Due Date Last Done Comments ADVANCE CARE PLANNING 1945 ANNUAL REVIEW OF HM ORDERS 1947 CT COLONOGRAPHY 1945 FIT 1945 FLEX SIG 1945 sDNA (Cologuard) 1945 COLONOSCOPY 1957 COLORECTAL CANCER SCREENING 1957 HEPATITIS C SCREENING 1965 LIPID 1982 RSV VACCINE ( & 60+) (1 - 1-dose 60+ series) 2007 AORTIC ANEURYSM SCREENING (SYSTEM ASSIGNED) 2012 FALL RISK ASSESSMENT 2012 MEDICARE ANNUAL WELLNESS VISIT 2012 COVID-19 Vaccine ( season) 2023 04/19/2021, 08/31/2020, 08/10/2020 INFLUENZA VACCINE (#1) 2023 , 03/03/2020, 02/24/2019, Additional history exists PHQ-2 (once per calendar year) 2023 DTAP/TDAP/TD IMMUNIZATION (3 - Td or Tdap) 03/26/2029 03/26/2019, 12/30/2008 Pneumococcal Vaccine: 65+ Years Completed 02/02/2015, 09/05/2013 ZOSTER IMMUNIZATION Completed 02/12/2019, 12/06/2018, 11/30/2009 HPV IMMUNIZATION Aged Out No longer e ligible based on patient's age to complete this topic IPV IMMUNIZATION Aged Out No longer e ligible based on patient's age to complete this topic MENINGITIS IMMUNIZATION Aged Out No l onger eligible based on patient's age to complete this topic RSV MONOCLONAL ANTIBODY Aged Out No l onger eligible based on patient's age to complete this topic
--- OUTSIDE RECORDS SUMMARY | 2023-07-13 15:20 | XMS_ITS | Encounter Summary ---
Author Name Unknown Organization [facility] Address [address] [place] [address] Care Team Providers Care Living Coach Name Role Phone Unavailable Primary Care Provider Unavailabl e Encounter Details Date Type Department Care Team (Late st Contact Info) Description 04/30/2023 Clinical Communication Department of Radiation Oncology in [place], [place] [address] [place] [phone] Elijah Cedeno M.D. [address] [place] [address] Social History Tobacco Use Types Packs/Day Years [...] your living situation today? [facility] to live 03/15/2023 Sex and Gender Information Value Date Recorded Sex Assigned at Male 03/15/2023 12:48 PM CDT Gender Identity Male 03/15/2023 12:48 PM CDT Sexual Orientation Straight 03/15/2023 12 :48 PM CDT documented as of this encounter Miscellaneous Notes * Telephone Encounter - Lena Caldwell R.N. - 04/30/2023 4:40 PM CST ASSESSMENT Patient reports that he took laxatives on Sunday. On Sunday he experienced diarrhea and this resolved by evening time on Sunday. He does report feeling mood changes while on Firmagon. He denies feeling suicidal or wanting to harm himself or others. He has been prescribed Lexapro in the past fordepression. He is talking with his primary about mood and Lexapro prescriptions. He is asking if hecan take Lexapro when on Firmagon. PLAN Patient does follow with [facility] at [facility]. We was most recently seen on April 23, 2023. I will connect with our care team regarding Lexapro and Firmagon and connect back with patient. I provided patient full support today and confirmed that patient has suicide prevention phone number if concerns for suicide would develop. Radiation Oncology Melbeta can be contacted at anytime for any questions or concerns. Disposition/Recommendation: self-care - appropriate at this time, patient encouraged to call back with questions. Information/Education: patient/caller able to teach back. Caller agreeable to plan of care: yes. The following references were used: nursing clinical judgement. Addendum: I called patient back on May 01, 2023 and he stated he preferred portal message of communication. I will send patient portal message today. [employer] * Telephone Encounter - Jaqueline Irizarry - 04/30/2023 8:24 AM CST Other Reason for Call Caller: Kishore Relationships to patient: Self Reason for call: Patient had his Firmagon injection on . He reports that he was sick all day on Sunday. He also is quite anxious and is wondering if he can start taking Lexapro? He is speaking with his primary provider, but wants to make sure there are no contraindications if he starts taking Lexapro. He would appreciate a call back. [phone], cannot call between 3-4 pm today [employer] documented in this encounter Plan of Treatment Upcoming Encounters Date Type Department Care Team (Late st Contact Info) Description 07/23/2023 7:00 AM EXHIBITOR SALES Appointment Department of Radiation Oncology in [place], [place] [address] [place] [address] Elijah Cedeno M.D. [address] [place] [address] documented as of this encounter Visit Diagnoses Not on filedocumented in this encounter
--- OUTSIDE RECORDS SUMMARY | 2023-07-13 15:20 | XMS_ITS | Referral Summary ---
Author Name Unknown Organization [facility] Address [address] [place] [id number] Care Team Providers Care Hopper Operator Name Role Phone Unavailable Primary Care Provider Unavailabl e Social History Tobacco Use Types Packs/Day Years Used Date Smoking Tobacco: Never Assessed Adolescent Education Answer Date Record ed Getting School Help Needed Not on file 03/10 Sex and Gender Information Value Date Recorded Sex Assigned at Not on file Gender Identity Not on file Sexual Orientation Not on file Plan of Treatment Not on file
--- OUTSIDE RECORDS SUMMARY | 2023-07-13 15:21 | XMS_ITS | Data Portability ---
Author Name Unknown Address [address] [place] [address] Phone [phone] Organization [facility], [facility] Address [address] [place] [address] Care Team Providers Care Dye Colorist Dyer Name Role Phone JUAN R BUCK Primary Care Provider Assessment No assessment recorded. Plan of Treatment Reminders Order Date Submit Date Provider Last Modified By Organization Details Last Modified Time Details Appointments None recorded. Lab None recorded. Referral radiation oncologist referral 2022 023 [email or web address] - [facility], [address], [place], [address], 3 07:34:10 Procedures None recorded. Surgeries None recorded. Imaging MRI, prostate, w/wo contrast 2022 023 [facility] (Radiology), [address] [place], [address], 3 14:55:16 Medication Orders Casodex 50 mg tablet 2022 023 [id number], [address], [place], [place], [id number], 3 18:03:35 ceftriaxon e 1 gram solution for injection 2022 023 [email or web address] 0 Not available 3 16:56:36 Patient TargetsNo targets recorded. Patient Instructions Encounter Date Encounter Id Patient Instructions Last Modified By Organization Details Last Modified Time 02/05/2023 [id number] 50 minute discussion [facility] Not available 02/05/2023 18:21:09 Reason for Referral Referring Physician: Fritz newton, Urology, Encounter Date: 02/05/2023 Results Created Date Observation Date Name Description Value Unit Range Abnormal Flag LastModifiedBy Organization Detail LastModifiedTime 10/11/19 MRI, prost ate, w/wo contr ast No observ ation record ed. [email or web address] [facility] (Radiology) [address] [place] [address] [place], [address], 10/12/2022 13:05:47 02/02/20 23 01/30/2023 NM, bone scan, whole body No observ ation record ed. [address] Radiology Department [address] [place], [address], 02/05/2023 00:29:25 02/02/20 23 01/30/2023 CT, abdom en + pelvi s, w/ contr ast No observ ation record ed. [email or web address] Radiology Department [address] [place], [address], 02/05/2023 00:31:09 Result Notes None recorded. Procedures Surgical History Date Name Laterality Status Provider Name and Address Organization Details Recorded Time Prostate Biopsy Procedure completed Fritz Juarez MD [address] [place] [address],[address], [address], [facility] 12/22/2022 14:41:11 Hernia Repair completed Fritz Juarez MD [address] [place] [address],[address], [place], [address], [facility] 09/27/2022 14:17:35 Imaging Results Imaging Date Name Status LastModified by Organiz ation Details LastModified Time 10/10/2022 MRI, prostate, w/wo contrast completed [email or web address] [facility] (Radiology) [address] [place] [address] [place], [address], 10/12/2022 13:05:47 01/30/2023 NM, bone scan, whole body completed [address] Radiology Department [address] [place], [address], 02/05/2023 00:29:25 01/30/2023 CT, abdomen + pelvis, w/ contrast completed [address] Radiology Department [address] [place], [address], 02/05/2023 00:31:09 Procedure Notes None recorded. Medical Equipment None Reported. Allergies Allergen ID Allergen Name Allergen Category Reaction Reaction Severity Criticality Documentation Date Start Date Code Code System Note Provider Name and Address Organization Details Recorded Time 043210 clindamyc in Not available Not available Not available Not available 09/27/2022 2582 RxNorm Fritz Juarez MD [address] [place] [address], [phone], [facility] 3 14:14:50 [id number] Product containin g 3-hydroxy -3-methyl glutaryl- coenzyme A reductase inhibitor (product) medicatio n Not available Not available Not available 09/27/2022 03959 009 SNOMED Fritz Juarez MD [address] [place] [address], [phone], [facility] 3 14:14:57 Medications Name Sig Start Date Stop Date Status Note LastModified by Organization Details LastModified Time bicalutamid e 50 mg tablet TAKE 1 TABLET BY MOUTH EVERY DAY active Not Available Not Available No t Available carvedilol 6.25 mg tablet 09/27 completed Not Available Not Available Not Available clobetasol 0.05 % topical cream APPLY TO AFFECTED AREA ON HANDS TWICE A DAY FOR 2 WEEKS , TAKE 2 WEEK BREAK THEN REPEAT NEEDED FOR FLARES active Not Available Not Available No t Available amlodipine 2.5 mg tablet active Not Available Not Available Not Available amlodipine 5 mg tablet TAKE 1/2 TABLET BY MOUTH EVERY DAY -- DOSE CHANGE active Not Available Not Available No t Available ciprofloxac in 500 mg tablet TAKE 1 TABLET BY MOUTH EVERY 12 HOURS FOR 4 DAYS 02/05 completed Not Available Not Available Not Available ceftriaxone 1 gram solution for injection Take 1 g by injection route. 02/05 completed Not Available Not Available Not Available famotidine 20 mg tablet active Not Available Not Available Not Available tamsulosin 0.4 mg capsule TAKE 1 CAPSULE BY MOUTH EVERY DAY active Not Available Not Available No t Available cephalexin 500 mg capsule 09/27 completed Not Available Not Available Not Available nitroglycer in 0.4 mg sublingual tablet active Not Available Not Available Not Available hydroxyzine HCl 25 mg tablet 09/27 completed Not Available Not Available Not Available ammonium lactate 12 % topical cream APPLY ONCE DAILY NEEDED FOR DRY SKIN active Not Available Not Available No t Available acyclovir 200 mg capsule TAKE 1 CAPSULE BY MOUTH 5 TIMES DAILY NEEDED active Not Available Not Available No t Available ketoconazol e 2 % topical cream APPLY TO AFFECTED AREA ON BACK AND NECK 2-3 TIMES WEEKLY ONGOING active Not Available Not Available No t Available lisinopril 40 mg tablet TAKE 1 TABLET BY MOUTH EVERY DAY active Not Available Not Available No t Available escitalopra m 10 mg tablet active Not Available Not Available Not Available rosuvastati n 5 mg tablet TAKE 1 TABLET BY MOUTH EVERY NIGHT AT BEDTIME active Not Available Not Available No t Available Accu-Chek Guide test strips TEST 1 TIME DAILY active Not Available Not Available No t Available Vitals Date Recorded Body weight Body mass index (BMI) Body height Provider Name and Address Organization Details Last Updated DateTime 09/27/2022 94128.78 g 23.6 kg/m2 175.26 cm Fritz Juarez MD [address] [facility] [address], [place], [address] 09/27/2022 14:14:24 Date Recorded Body height Body mass index (BMI) Body weight Provider Name and Address Organization Details Last Updated DateTime 12/22/2022 175.26 cm 23.6 kg/m2 [address]49.[address] - [facility] 12/22/2022 14:00:00 Date Recorded Body height Body mass index (BMI) Body weight Provider Name and Address Organization Details Last Updated DateTime 02/05/2023 175.26 cm 23.6 kg/m2 85462.78 g Anjana rosado [facility] 02/05/2023 16:56:17 Social History Question Answer Notes LastModified by Organizat ion Details LastModified Time Tobacco Smoking Status Former Smoker Fritz Juarez MD [address] [facility] [address], [place], [address], [facility] 09/27/2022 14:16:56 What Is Your Level Of Alcohol Consumption? None Information not available 09/27/2022 What Is Your Level Of Caffeine Consumption? Moderate Information not available 09/27/2022 When Did You Quit Smoking? 16+yearssince lastcigarette Information not available 09/27/2022 What Was The Date Of Your Most Recent Tobacco Screening? 02/05/2023 [email or web address] Information not available 02/05/2023 Do You Use Any Illicit Or Recreational Drugs? No Information not available 09/27/2022 Sex: Male Functional Status None recorded. Mental Status None recorded. Family History Relationship Description Onset Age of this Age Resolved Age Notes Maternal Uncle Family history of prostate cancer Medical History Condition Response Diabetes Y Heart Disease Y High Blood Pressure Y Cancer Y High Cholesterol Y Immunizations Vaccine Type Date Status Provider Name and Address Organization Details Recorded Time pneumococcal polysaccharide PPV23 09/05/2013 completed Fritz Juarez MD [address] [facility] [address], [place], [address], [facility] 09/27/2022 14:14:34 Pneumococcal conjugate PCV 13 02/02/2015 completed Fritz Juarez MD [address] [facility] [address], [place], [address], [facility] 09/27/2022 14:14:34 influenza, trivalent, adjuvanted 02/21/2018 completed Anjana rosado [facility] 02/05/2023 16:56:30 influenza, trivalent, adjuvanted 02/24/2019 td rosado [facility] 02/05/2023 16:56:30 influenza, trivalent, adjuvanted 03/05/2017 td rosado [facility] 02/05/2023 16:56:30 zoster recombinant 12/06/2018 td rosado [facility] 02/05/2023 16:56:30 zoster recombinant 02/12/2019 td rosado [facility] 02/05/2023 16:56:30 Influenza vaccine, quadrivalent, adjuvanted 03/03/2020 completed Anjana Murray null, [facility] 02/05/2023 16:56:30 Influenza vaccine, quadrivalent, adjuvanted 03/10/2021 completed Anjana Murray null, [facility] 02/05/2023 16:56:30 Influenza vaccine, quadrivalent, adjuvanted 03/22/2022 completed Anjana Murray null, [facility] 02/05/2023 16:56:30 COVID-19, mRNA, LNP-S, PF, 30 mcg/0.3 mL dose 08/10/2020 completed Anjana Murray null, [facility] 02/05/2023 16:56:30 COVID-19, mRNA, LNP-S, PF, 30 mcg/0.3 mL dose 08/31/2020 completed Anjana Murray null, [facility] 02/05/2023 16:56:30 COVID-19, mRNA, LNP-S, PF, 30 mcg/0.3 mL dose 04/19/2021 completed Anjana Murray null, [facility] 02/05/2023 16:56:30 COVID-19, mRNA, LNP-S, PF, 30 mcg/0.3 mL dose, kan-sucrose 10/17/2021 completed Anjana Murray null, [facility] 02/05/2023 16:56:30 COVID-19, mRNA, LNP-S, bivalent, PF, 30 mcg/0.3 mL dose 11/24/2022 completed Anjana Murray null, [facility] 02/05/2023 16:56:30 COVID-19, mRNA, LNP-S, bivalent, PF, 30 mcg/0.3 mL dose 03/22/2022 completed Anjana Murray null, [facility] 02/05/2023 16:56:30 Tdap 12/30/2008 completed Anjana Murray null, [facility] 02/05/2023 16:56:30 Tdap 03/26/2019 completed Anjana Murray null, [facility] 02/05/2023 16:56:30 zoster live 11/30/2009 completed Anjana Leosa alonzo, [facility] 02/05/2023 16:56:30 Influenza, high dose seasonal 05/25/2016 completed Anjana rosado, [facility] 02/05/2023 16:56:30 Influenza, high dose seasonal 06/02/2015 completed Anjana Leosa alonzo, [facility] 02/05/2023 16:56:30 Influenza, seasonal, injectable 03/12/2012 completed Anjana Leosa alonzo, [facility] 02/05/2023 16:56:30 Past Encounters Encounter ID Performer Location Encounter Start Date Encounter Closed Date Diagnosis/Indication [id number] [facility] [address] [place] [address] 09/27/2022 14:10:41 10/02/2022 13:42:35 Prostate specific antigen above reference range [id number] Fritz Juarez MD [facility] [address] [facility],[address] [address] 12/22/2022 13:28:12 12/27/2022 10:53:35 Prostate specific antigen above reference range Antibiotic prophylaxis indicated [id number] [facility] [address] [place] [address] 02/05/2023 16:44:32 02/12/2023 15:06:47 Malignant tumor of prostate Health Concerns Section Related Observation LastModified by Organization Detai ls LastModified Time None Recorded Concern Status LastModified by Organization Details LastModified Time None Recorded Advance Directives Directive None Recorded Payers Encounter Date Sequence Insurance Name Policy Number Policy Morrison Covered Member ID Morrison Member ID Guarantor Name 02/05/2023 1 [employer] (MEDICARE REPLACEMENT/ ADVANTAGE - PPO) [id number] Kishore Corbin [id number] Kishore Corbin 12/22/2022 1 [employer] (MEDICARE REPLACEMENT/ ADVANTAGE - PPO) [id number] Kishore Corbin [id number] Kishore Corbin 09/27/2022 1 [employer] (MEDICARE REPLACEMENT/ ADVANTAGE - PPO) [id number] Kishore Corbin [id number] Kishore P Corbin Notes Date Note Type Note Provider Name and Address Organization Details Recorded Time 09/27/2022 text/html HPI Notes: 77 yo male with H/O Elevated PSA. No Family H/O prostate cancer. He notes mild ED - he notes some difficulty maintaining erections - no pain or curvature with erections. 09/20/20 - He presents for follow-up on PSA. He noted gross hematuria (first part of stream) started in July. Often occurs after BM or sex. He voids every 2-3 hours during the day and 1-2x/nights. He has hesitancy / slower stream (at night) - rare urgency (with coffee) - no dysuria. He denies abdominal or flank pain. 09/27/22 - He presents for follow-up on elevated PSA and Right apex nodule. He voids every 2-3 hours during the day and 1-2x/nights. He notes rare dysuria. PSA - 1.56 (12/13/10) - 8.84 (09/16/20) - 2.79 (12/25/12) - 9.71 (03/24/21) - 3.13 (12/29/13) - 13.55 (08/30/21) - 3.23 (02/02/15) - 14.04 (11/29/21) - 5.40 (06/08/16) - 16.07 (03/14/22) - 4.37 (09/08/16) - 16.8 (09/21/22) - 4.55 (05/18/17) - 5.47 (10/02/17) - 5.78 (02/19/18) - 5.08 (07/23/18) - 6.50 (02/19/19) - 6.41 (06/23/19) - 7.65 (11/18/19) - 6.46 (12/05/19) - Free % - 18% - 8.06 (04/29/20) - 11.84 (07/14/20) - Free - 11% Prostate MRI (01/14/20) - 36.1 gm - no suspicious lesions CT Urogram (10/04/21) - Right - 3 mm stone (Lower pole) - Left 2 mm stone (mid-kidney) - no bladder or kidney masses - no filling defect - enlarged prostate (50 gm) with small intravesical median lobe and mild bladder wall thickening Fritz Juarez MD [address] [facility] [address], [place], [address], [place] - [facility] 09/27/2022 21:51:57 12/22/2022 text/html HPI Notes: 77 yo male with H/O Elevated PSA. No Family H/O prostate cancer. He notes mild ED - he notes some difficulty maintaining erections - no pain or curvature with erections. 09/20/20 - He presents for follow-up on PSA. He noted gross hematuria (first part of stream) started in July. Often occurs after BM or sex. He voids every 2-3 hours during the day and 1-2x/nights. He has hesitancy / slower stream (at night) - rare urgency (with coffee) - no dysuria. He denies abdominal or flank pain. 09/27/22 - He presents for follow-up on elevated PSA and Right apex nodule. He voids every 2-3 hours during the day and 1-2x/nights. He notes rare dysuria. 12/22/22 - He presents for Cognitive MRI TRUS bx of the prostate for elevated PSA, Right apex nodule, and PI-RADS 4 lesion (Left mid-gland - PZ). (unable to load MRI images on UroNav). He reports no change in urination. He voids every 2-3 hours during the day and 1-2x/nights. PSA - 1.56 (12/13/10) - 8.84 (09/16/20) - 2.79 (12/25/12) - 9.71 (03/24/21) - 3.13 (12/29/13) - 13.55 (08/30/21) - 3.23 (02/02/15) - 14.04 (11/29/21) - 5.40 (06/08/16) - 16.07 (03/14/22) - 4.37 (09/08/16) - 16.8 (09/21/22) - 4.55 (05/18/17) - 5.47 (10/02/17) - 5.78 (02/19/18) - 5.08 (07/23/18) - 6.50 (02/19/19) - 6.41 (06/23/19) - 7.65 (11/18/19) - 6.46 (12/05/19) - Free % - 18% - 8.06 (04/29/20) - 11.84 (07/14/20) - Free - 11% Prostate MRI (01/14/20) - 36.1 gm - no suspicious lesions Prostate MRI (10/06/22) - 32 gm - Lesion 1 - (PI-RADS 4) - 19 mm - Left mid-gland (PZ) - 4 o'clock (abuts capsule) - no enlarged lymph nodes CT Urogram (10/04/21) - Right - 3 mm stone (Lower pole) - Left 2 mm stone (mid-kidney) - no bladder or kidney masses - no filling defect - enlarged prostate (50 gm) with small intravesical median lobe and mild bladder wall thickening Fritz Juarez MD [address] [facility],[address], [place], [address], [facility] 12/22/2022 15:17:24 02/05/2023 text/html HPI Notes: 77 yo male diagnosed with Prostate cancer - cT2c - Yesi 3+4=7 (dx 12/22/22). No Family H/O prostate cancer. He notes mild ED - he notes some difficulty maintaining erections - no pain or curvature with erections. 09/27/22 - He presents for follow-up on elevated PSA and Right apex nodule. He voids every 2-3 hours during the day and 1-2x/nights. He notes rare dysuria. UroNav bx (12/22/22) - 34 gm - Prostate cancer - cT2c - Yesi 3+4=7 - [place] 3+4=7 - involving 7/12 cores (Left apex, mid, and base, Lesion 1 - Right apex) - 5-100% = + perineural invasion 02/05/23 - He presents for prostate cancer talk. He reports no change in urination. He voids every 2-3 hours during the day and 1-2x/nights. PSA - 1.56 (12/13/10) - 8.84 (09/16/20) - 2.79 (12/25/12) - 9.71 (03/24/21) - 3.13 (12/29/13) - 13.55 (08/30/21) - 3.23 (02/02/15) - 14.04 (11/29/21) - 5.40 (06/08/16) - 16.07 (03/14/22) - 4.37 (09/08/16) - 16.8 (09/21/22) - 4.55 (05/18/17) - 5.47 (10/02/17) - 5.78 (02/19/18) - 5.08 (07/23/18) - 6.50 (02/19/19) - 6.41 (06/23/19) - 7.65 (11/18/19) - 6.46 (12/05/19) - Free % - 18% - 8.06 (04/29/20) - 11.84 (07/14/20) - Free - 11% Prostate MRI (01/14/20) - 36.1 gm - no suspicious lesions Prostate MRI (10/06/22) - 32 gm - Lesion 1 - (PI-RADS 4) - 19 mm - Left mid-gland (PZ) - 4 o'clock (abuts capsule) - no enlarged lymph nodes CT Urogram (10/04/21) - Right - 3 mm stone (Lower pole) - Left 2 mm stone (mid-kidney) - no bladder or kidney masses - no filling defect - enlarged prostate (50 gm) with small intravesical median lobe and mild bladder wall thickening CT scan (01/30/23) - no evidence of metastatic disease - Right - 2 mm stone (lower pole) Bone scan (01/30/23) - no evidence of metastatic disease. Fritz Juarez MD [address] [facility] [address], [place], [address], [facility] 02/05/2023 18:21:26
[2023-07-15 23:33] LABS: Testosterone, Adult Male <3 ng/dL (300-720)
== END 2023-07-13 15:14 | disposition home or self-care (01) ==
LOC: MRI 15:14
PROVIDERS: PCP Family Medicine; Visit Provider Internal Medicine
DX: C61 Malignant neoplasm of prostate (principal)
CPT/HCPCS: 36415; 72195; 84403

== ENCOUNTER 2024-03-24 13:45 | Outpatient (RCR) | payer MEDICARE, BC, SELFPAY | END 2024-07-14 15:18 | disposition home or self-care (01) | PROVIDERS: PCP Family Medicine; Visit Provider Family Medicine | DX: R53.81 Other malaise (principal); R29.898 Other symptoms and signs involving the musculoskeletal system; R53.1 Weakness; R53.83 Other fatigue; R26.81 Unsteadiness on feet; Z51.89 Encounter for other specified aftercare | CPT/HCPCS: 97110; 97112; 97161; 97165; 97530; 97535; X5282 ==

== ENCOUNTER 2024-05-29 11:04 | Outpatient (CLI) | payer MEDICARE, BC, SELFPAY ==
--- NOTE | 2024-05-29 11:15 | CRLHL7_ITS ---
For Patients: As a result of the Cures Act, medical imaging exams and procedure reports are released immediately into your electronic medical record. You may view this report before your referring provider. If you have questions, please contact your health care provider. Indication: Postop TKA Technique: Two views right knee Findings/Impression: Hardware from a right total knee arthroplasty is in satisfactory position. Bone alignment is normal. No sign of acute fracture. Postop changes are within normal limits. Dictated by Sd Fuentes MD @ 05/29/2024 1:11:06 PM (Electronically Signed)
== END 2024-05-29 11:05 | disposition home or self-care (01) ==
LOC: RAD 11:04
PROVIDERS: PCP Family Medicine; Visit Provider Internal Medicine Gastroenterology
DX: R13.10 Dysphagia, unspecified (principal); K44.9 Diaphragmatic hernia without obstruction or gangrene; K21.9 Gastro-esophageal reflux disease without esophagitis
CPT/HCPCS: 74246

== ENCOUNTER 2025-01-29 09:30 | Outpatient (RCR) | payer MEDICARE, BC, SELFPAY | END 2025-05-29 23:59 | disposition home or self-care (01) | PROVIDERS: PCP Family Medicine; Visit Provider Internal Medicine | DX: R32 Unspecified urinary incontinence (principal); Z51.89 Encounter for other specified aftercare | CPT/HCPCS: 97110; 97162; 97535 ==